=== PATIENT | male | born 1950 | race Caucasian/White ===

== ENCOUNTER 2021-08-22 10:46 | Observation (INO) | payer MEDICARE, MEDICAID, SELFPAY ==
[2021-08-22] VITALS (7 sets, daily range): BP systolic 141–185; BP diastolic 70–92; PULSE 71–83; RESP 16–20; TEMP 36.9–37.2; O2SAT 94–97; BMI 24.2
--- NOTE | ~2021-08-22 | CT_ITS ---
EXAMINATION: CT HEAD WITHOUT CONTRAST CLINICAL INFORMATION: Unwitnessed fall COMPARISON: None TECHNIQUE: Contiguous axial imaging was performed from the skull base to vertex without intravenous administration of contrast. This CT examination was performed using dose optimization techniques as appropriate, variously including the following: *Automated exposure control *Adjustment of mA and/or kV according to patient size (this includes techniques or standardized protocols for targeted exams where dose is matched to indication/reason for exam; i.e. extremities or head) *Use of iterative reconstruction technique DLP: 717 mGy-cm FINDINGS: There is no evidence of an extra-axial collection. There is no evidence of intra-axial or extra-axial hemorrhage. The ventricles and extra-axial CSF spaces are prominent suggestive of generalized atrophy. There is nonspecific periventricular white matter disease. There is an old left occipital parietal infarct and exvacuo dilatation of the posterior horn of the left lateral ventricle. There is a right posterior parietal infarct. There is a left basal ganglia lacunar infarct. There may be small bilateral thalamic lacunar infarcts. No mass or mass effect is seen. No skull fracture is seen. Visualized paranasal sinuses, mastoid air cells and middle ears are clear. CT/CT head/brain wo con IMPRESSION: No acute findings. Generalized atrophy and nonspecific periventricular white matter disease. Multiple bilateral infarcts.
--- NOTE | ~2021-08-22 | XR_ITS ---
EXAMINATION: XR BILATERAL HIPS WITH AP PELVIS CLINICAL INFORMATION: Bilateral hip pain after fall COMPARISON: None TECHNIQUE: AP view of the pelvis and 2 views of each hip were obtained. FINDINGS: There is a minimally displaced fracture of the right greater trochanter. No left hip fracture is seen. Bones of the pelvis are normal. Soft tissues are normal. XR/XR hip BI w [id number] IMPRESSION: Minimally displaced right greater trochanter fracture.
--- NOTE | ~2021-08-22 | CT_ITS ---
EXAMINATION: CT CERVICAL SPINE WITHOUT CONTRAST CLINICAL INFORMATION: Fall COMPARISON: None TECHNIQUE: Axial images through the cervical spine without contrast. Sagittal and coronal reconstructions on the technologist workstation were performed. This CT examination was performed using dose optimization techniques as appropriate, variously including the following: *Automated exposure control *Adjustment of mA and/or kV according to patient size (this includes techniques or standardized protocols for targeted exams where dose is matched to indication/reason for exam; i.e. extremities or head) *Use of iterative reconstruction technique DLP: 175 mGy-cm FINDINGS: There is reversal of lower cervical lordosis. Bone alignment is otherwise normal. No fracture or dislocation is seen. There is multilevel degenerative spondylosis and degenerative disc disease from C3-C4 to C6-C7. Prevertebral soft tissues are normal. There is evidence of atherosclerotic disease. There is a small cyst in the right upper lobe. Lung apices are otherwise unremarkable. CT/CT cervical spine wo con IMPRESSION: Degenerative changes. No fracture or dislocation seen. Fleischner guidelines were followed.
--- NOTE | 2021-08-22 11:03 | ECG_ITS ---
Test Reason : fall Blood Pressure : / mmHG Vent. Rate : 075 BPM Atrial Rate : 075 BPM P-R Int : 176 ms QRS Dur : 068 ms QT Int : 382 ms P-R-T Axes : 063 071 077 degrees QTc Int : 426 ms Normal sinus rhythm Normal ECG No previous ECGs available Referred By: Deanna Harris Electronically Signed By:Marino Alex
--- NOTE | 2021-08-22 11:16 | ED_ITS ---
HPI - Fall General Chief Complaint: General Medical Stated Complaint: UNWIT FALL,R HIP PAIN,FROM SNF PER EMS Time Seen by Provider: 08/22/21 11:03 Source: patient, EMS and old records reviewed Mode of arrival: EMS Limitations: altered mental status History of Present Illness HPI Narrative: 70 y/o male with history of vascular dementia, COPD, HTN, dysphagia, CVA, GI bleed, anemia, peptic ulcer disease who presents to the ER with right hip pain with reports of unwitnessed fall out of bed at his SNF at some point last night. Patient is a poor historian. He reports pain in his hip, worse with any movement. He was found with his hips and knees contracted laying in bed when EMS arrives. When attempted to move he would holler out in pain. He denies any headache or neck pain. MD complaint: fall Onset (ago): unknown Fall from: out of bed Fall witnessed: no Place fall occurred: skilled nursing/SNF Loss of consciousness: unsure Prolonged down time: unclear Symptoms prior to fall: none Location of injury: pelvis Severity: moderate Quality: aching Associated symptoms (after fall): denies Related Data Home Medications Medication Instructions Recorded Confirmed albuterol sulfate 90 mcg/actuation 2 puff INHALATION Q4-6H PRN 08/22/21 08/22/21 aerosol inhaler amlodipine 10 mg tablet 1 tab PO DAILY 08/22/21 08/22/21 aspirin 81 mg chewable tablet 81 mg PO DAILY 08/22/21 08/22/21 atorvastatin 80 mg tablet 1 tab PO DAILY 08/22/21 08/22/21 cholecalciferol (vitamin D3) 1,250 1,250 mcg PO QMONTH 08/22/21 08/22/21 mcg (50,000 unit) tablet clopidogrel 75 mg tablet 1 tab PO DAILY 08/22/21 08/22/21 gabapentin 300 mg capsule 300 mg PO DAILY 08/22/21 08/22/21 melatonin 3 mg tablet 3 mg PO BEDTIME 08/22/21 08/22/21 pantoprazole 40 mg tablet,delayed 1 tab PO DAILY 08/22/21 08/22/21 release polyethylene glycol 3350 17 gram 17 g PO DAILY 08/22/21 08/22/21 oral powder packet (Miralax) sennosides 8.6 mg tablet (senna) 17.2 mg PO DAILY 08/22/21 08/22/21 sertraline 50 mg tablet 1 tab PO DAILY 08/22/21 08/22/21 Allergies Allergy/AdvReac Type Severity Reaction Status Date / Time Unable to Assess Allergy Unverified 08/22/21 11:03 Review of Systems Review of Systems: Constitutional: No Fever, No Chills ENT/Mouth: No sore throat, No Rhinorrhea, No Swallowing Difficulty Cardiovascular: No Chest Pain, No SOB Respiratory: No Cough, No Sputum Gastrointestinal: No Nausea, No Vomiting, No Diarrhea, No abdominal Pain Genitourinary: No Dysuria, No Urinary Frequency, No Hematuria Musculoskeletal: + joint pain, No Myalgias Skin: No Skin Lesions, No rash Neuro: No Weakness, No Numbness, No Dizziness, No Headache Psych: No Anxiety/Panic, No Depression Heme/Lymph: No Bruising, No Lymphadenopathy PMFSH Social History Social History Advance Directives: Yes Advance Directives on File: No Physical Exam Vital Signs: Vital Signs: Last Vital Signs Temp 98.8 F 08/22/21 12:40 Pulse 71 08/22/21 14:33 Resp 16 08/22/21 14:33 BP 141/70 H 08/22/21 14:33 Pulse Ox 94 08/22/21 14:33 BMI result Body Mass Index 24.2 Appearance: Alert elderly male laying in the stretcher in cervical collar. Oriented X1. No acute distress. Eyes: Pupils equal, round and reactive to light. ENT: Pharynx normal. Neck: in cervical collar, no midline tenderness CVS: Normal heart rate and rhythm. Pulses normal. Respiratory: No respiratory distress. Breath sounds normal. Abdomen: Soft and nontender. +BS x4 Skin: Skin warm and dry. Normal skin color. Normal skin turgor. No rashes. Extremities: bilateral LE are contracted and held in flexion at the hips and knees, unable to extend, laying on his left side slightly. tender to touch right lateral hip. no skin changes. Neuro: Oriented X1, awake and alert, follows simple commands. confused Course Course Course Narrative: 70-year-old male with history of vascular dementia, strokes, COPD, dysphagia, history GI bleed and anemia who presents to the ER from [facility] for evaluation of right hip pain after an unwitnessed fall. [facility] [place] he ambulates with a walker. Difficult to assess due to flexion and positioning on exam as well as pain. XRs are pending. Will get CT head and neck and metabolic workup as well given limited history. Reevaluation(s) Reevaluation #1: CT head/neck without acute traumatic findings. EKG ok, trop negative. XR hips pending. Pain improved with Fentanyl. XR of the pelvis/hips showing a minimally displaced greater trochanteric right hip fx. Brianda from Ortho made aware - recommending admission for pain control, nonoperative management. Patient updated on plan of care. Consultations Consultation #1: Orthopedics - Brianda BRADLEY MDM - Fall Lab Data Result diagrams: 08/22/21 11:27 08/22/21 11: Labs: Lab Results 08/22/21 08/22/21 08/22/21 Range/Units 11:27 11:27 11:27 WBC 11.0 H (4.8-10.8) X10*3/uL RBC 3.97 L (4.60-5.80) X10*6/uL Hgb 13.0 L (14.0-18.0) g/dl Hct 37.5 L (42.0-52.0) % MCV 94.5 (80.0-98.0) fL MCH 32.7 (27.0-33.0) pg MCHC 34.7 (31.0-36.0) g/dl RDW 13.2 (11.0-16.0) % Plt Count 240 (160-400) X10*3/uL MPV 9.6 (9.4-12.4) fL Immature Gran % (Auto) 0.4 (0.0-0.4) % Neut % (Auto) 71.1 (45-73) % Lymph % (Auto) 19.6 L (20-40) % [place] % (Auto) 8.2 (2-11) % Eos % (Auto) 0.4 (0-4) % Baso % (Auto) 0.3 (0-2) % Lymph # (Auto) 2.2 (1.2-4.9) X10*3/uL [place] # (Auto) 0.9 (0.1-1.2) X10*3/uL Eos # (Auto) 0.0 (0.0-0.4) X10*3/uL Baso # (Auto) 0.0 (0.0-0.2) X10*3/uL Abs Immat Gran (auto) 0.04 H (0.00-0.03) X10*3/uL Absolute Neuts (auto) 7.8 (2.0-8.3) x10*3/uL Absolute Nucleated RBC 0.000 (0.0-0.012) X10*3/uL Nucleated RBC % (auto) 0.0 (0.0-0.2) /100WBC PT (9.9-13.0) SEC INR (0.9-1.1) APTT (24.1-38.0) SEC Sodium 136 (135-145) mmol/L Potassium 4.2 (3.3-5.1) mmol/L Chloride 106 (96-108) mmol/L Carbon Dioxide 21 L (22-29) mmol/L Anion Gap 13 (12-20) BUN 21 H (9-16) mg/dL Creatinine 0.88 (0.5-1.4) mg/dL Estim Creat Clear Calc 63.7 Estimated GFR > 60 Random Glucose 112 (60-115) mg/dL Lactic Acid 1.2 (0.5-2.0) mmol/L Calcium 9.0 (8.4-10.2) mg/dL Magnesium 2.0 (1.6-2.6) mg/dL Total Bilirubin 0.8 (0.0-1.0) mg/dL Direct Bilirubin 0.3 (0.0-0.5) mg/dL AST 24 (5-37) U/L ALT 47 H (0-40) U/L Alkaline Phosphatase 139 H (39-117) U/L Troponin I High Sens (<3.5-35.0) ng/L Total Protein 6.9 (6.5-8.0) g/dL Albumin 4.0 (3.5-5.0) g/dL COVID-19 (PILAR) (Negative) COVID-19 Clin Com Influenza Type A (NADJA) (Negative) Influenza Type B (NADJA) (Negative) Influenza A & B Note 08/22/21 08/22/21 08/22/21 Range/Units 11:27 11:27 11:28 WBC (4.8-10.8) X10*3/uL RBC (4.60-5.80) X10*6/uL Hgb (14.0-18.0) g/dl Hct (42.0-52.0) % MCV (80.0-98.0) fL MCH (27.0-33.0) pg MCHC (31.0-36.0) g/dl RDW (11.0-16.0) % Plt Count (160-400) X10*3/uL MPV (9.4-12.4) fL Immature Gran % (Auto) (0.0-0.4) % Neut % (Auto) (45-73) % Lymph % (Auto) (20-40) % [place] % (Auto) (2-11) % Eos % (Auto) (0-4) % Baso % (Auto) (0-2) % Lymph # (Auto) (1.2-4.9) X10*3/uL [place] # (Auto) (0.1-1.2) X10*3/uL Eos # (Auto) (0.0-0.4) X10*3/uL Baso # (Auto) (0.0-0.2) X10*3/uL Abs Immat Gran (auto) (0.00-0.03) X10*3/uL Absolute Neuts (auto) (2.0-8.3) x10*3/uL Absolute Nucleated RBC (0.0-0.012) X10*3/uL Nucleated RBC % (auto) (0.0-0.2) /100WBC PT (9.9-13.0) SEC INR (0.9-1.1) APTT (24.1-38.0) SEC Sodium (135-145) mmol/L Potassium (3.3-5.1) mmol/L Chloride (96-108) mmol/L Carbon Dioxide (22-29) mmol/L Anion Gap (12-20) BUN (9-16) mg/dL Creatinine (0.5-1.4) mg/dL Estim Creat Clear Calc Estimated GFR Random Glucose (60-115) mg/dL Lactic Acid (0.5-2.0) mmol/L Calcium (8.4-10.2) mg/dL Magnesium (1.6-2.6) mg/dL Total Bilirubin (0.0-1.0) mg/dL Direct Bilirubin (0.0-0.5) mg/dL AST (5-37) U/L ALT (0-40) U/L Alkaline Phosphatase (39-117) U/L Troponin I High Sens < 3.5 (<3.5-35.0) ng/L Total Protein (6.5-8.0) g/dL Albumin (3.5-5.0) g/dL COVID-19 (PILAR) Negative (Negative) COVID-19 Clin Com See Note Influenza Type A (NADJA) Negative (Negative) Influenza Type B (NADJA) Negative (Negative) Influenza A & B Note See Note 08/22/21 Range/Units 11:56 WBC (4.8-10.8) X10*3/uL RBC (4.60-5.80) X10*6/uL Hgb (14.0-18.0) g/dl Hct (42.0-52.0) % MCV (80.0-98.0) fL MCH (27.0-33.0) pg MCHC (31.0-36.0) g/dl RDW (11.0-16.0) % Plt Count (160-400) X10*3/uL MPV (9.4-12.4) fL Immature Gran % (Auto) (0.0-0.4) % Neut % (Auto) (45-73) % Lymph % (Auto) (20-40) % [place] % (Auto) (2-11) % Eos % (Auto) (0-4) % Baso % (Auto) (0-2) % Lymph # (Auto) (1.2-4.9) X10*3/uL [place] # (Auto) (0.1-1.2) X10*3/uL Eos # (Auto) (0.0-0.4) X10*3/uL Baso # (Auto) (0.0-0.2) X10*3/uL Abs Immat Gran (auto) (0.00-0.03) X10*3/uL Absolute Neuts (auto) (2.0-8.3) x10*3/uL Absolute Nucleated RBC (0.0-0.012) X10*3/uL Nucleated RBC % (auto) (0.0-0.2) /100WBC PT 12.5 (9.9-13.0) SEC INR 1.1 (0.9-1.1) APTT 32.4 (24.1-38.0) SEC Sodium (135-145) mmol/L Potassium (3.3-5.1) mmol/L Chloride (96-108) mmol/L Carbon Dioxide (22-29) mmol/L Anion Gap (12-20) BUN (9-16) mg/dL Creatinine (0.5-1.4) mg/dL Estim Creat Clear Calc Estimated GFR Random Glucose (60-115) mg/dL Lactic Acid (0.5-2.0) mmol/L Calcium (8.4-10.2) mg/dL Magnesium (1.6-2.6) mg/dL Total Bilirubin (0.0-1.0) mg/dL Direct Bilirubin (0.0-0.5) mg/dL AST (5-37) U/L ALT (0-40) U/L Alkaline Phosphatase (39-117) U/L Troponin I High Sens (<3.5-35.0) ng/L Total Protein (6.5-8.0) g/dL Albumin (3.5-5.0) g/dL COVID-19 (PILAR) (Negative) COVID-19 Clin Com Influenza Type A (NADJA) (Negative) Influenza Type B (NADJA) (Negative) Influenza A & B Note Discharge Plan Discharge Clinical Impression: Displaced fracture of greater trochanter of right femur Patient Disposition: Admitted As Inpatient
[2021-08-22 11:34] LABS: MANUAL DIFF FLAG NO
[2021-08-22] MEDS: fentaNYL citrate/PF 100 MCG/2 ML VIAL 50 MCG IVPUSH (11:37)
[2021-08-22 11:40] LABS: Basophils Percent Auto 0.3 % (0-2); Eosinophils Percent Auto 0.4 % (0-4); Hematocrit 37.5 % (42.0-52.0); Imm Gran Abs Auto 0.04 X10*3/uL (0.00-0.03); Imm Gran Pct Auto 0.4 % (0.0-0.4); Lymphocytes Absolute Auto 2.2 X10*3/uL (1.2-4.9); Lymphocytes Percent Auto 19.6 % (20-40); Mean Corpuscular HGB Conc 34.7 g/dl (31.0-36.0); Mean Corpuscular Hemoglobin 32.7 pg (27.0-33.0); Mean Corpuscular Volume 94.5 fL (80.0-98.0); Mean Platelet Volume 9.6 fL (9.4-12.4); Monocytes Absolute Auto 0.9 X10*3/uL (0.1-1.2); Monocytes Percent Auto 8.2 % (2-11); Neutrophils Absolute Auto 7.8 x10*3/uL (2.0-8.3); Neutrophils Percent Auto 71.1 % (45-73); Platelet Count 240 X10*3/uL (160-400); Red Blood Count 3.97 X10*6/uL (4.60-5.80); Red Cell Distribution Width 13.2 % (11.0-16.0)
[2021-08-22 11:47] LABS: Lactic Acid 1.2 mmol/L (0.5-2.0)
[2021-08-22 11:50] LABS: IDNOW Serial# 16C4AD1C; Influenza A Negative (Negative); Influenza B2 Negative (Negative)
[2021-08-22 11:51] LABS: COVID-19 Test Negative (Negative)
--- NOTE | 2021-08-22 11:52 | PHA.MEDREC ---
Pharmacy Consult ? Medication Reconciliation Pharmacy has completed the medication reconciliation. Patient came from [facility] with medication list. Lindsay De Paz, ChitraD
[2021-08-22 11:56] LABS: Alanine Aminotransferase 47 U/L (0-40); Alkaline Phosphatase 139 U/L (39-117); Anion Gap 13 (12-20); Aspartate Amino Transferase 24 U/L (5-37); Bilirubin Direct 0.3 mg/dL (0.0-0.5); Bilirubin Total 0.8 mg/dL (0.0-1.0); Blood Urea Nitrogen 21 mg/dL (9-16); Carbon Dioxide 21 mmol/L (22-29); Chloride 106 mmol/L (96-108); Creatinine Clr Calc Pharmacy 63.7; Estimated Glomerular Filt Rate > 60; Glucose Random 112 mg/dL (60-115); Potassium 4.2 mmol/L (3.3-5.1); Sodium 136 mmol/L (135-145); Total Protein 6.9 g/dL (6.5-8.0)
[2021-08-22 11:57] LABS: Troponin-I High Sensitivity < 3.5 ng/L (<3.5-35.0)
[2021-08-22 12:23] LABS: INTERNATIONAL NORM RATIO 1.1 (0.9-1.1); Prothrombin Time 12.5 SEC (9.9-13.0)
[2021-08-22 12:25] LABS: Partial Thromboplastin Time 32.4 SEC (24.1-38.0)
--- NOTE | 2021-08-22 14:08 | PC.NURSE ---
ct report back and is [facility]. [facility] has reviewed and cleared pt from c-collar pt resting comfortably.
--- NOTE | 2021-08-22 17:27 | PM.IMHP ---
History of Present Illness Date of Service: 08/22/21 Chief Complaint: fall, right hip pain 70m with past medical history of vascular dementia who lives at a long-term care facility presented after mechanical fall with right hip pain. Fall was unwitnessed. Patient himself can not give history due to expressive aphasia. He was found with hips and knees contracted lying in bed. X-ray showed minimally displaced greater trochanteric fracture of the right hip. Review of Systems Review of Systems: Yes Unobtainable due to mental condition [facility] Medical History COPD (chronic obstructive pulmonary disease) HLD (hyperlipidemia) HTN (hypertension) PUD (peptic ulcer disease) Vascular dementia Pertinent family history: unable to obtain Social History Alcohol intake: former Patient Tobacco Use Status: Former Tobacco user Advance Directives: Yes Advance Directives on File: No Meds Allergies Allergy/AdvReac Type Severity Reaction Status Date / Time Unable to Assess Allergy Unverified 08/22/21 11:03 Active Medications: Current Medications Albuterol Sulfate (Albuterol Sulfate 90 Mcg 8 Gm Inhaler) 2 puff INHALE Q4H PRN PRN Reason: Wheezing Amlodipine Besylate (Amlodipine Besylate 10 Mg Tablet) 10 mg PO DAILY [facility]; Protocol Aspirin (Aspirin 81 Mg Tab.Chew) 81 mg PO DAILY [facility] Atorvastatin Calcium (Atorvastatin Calcium 80 Mg Tablet) 80 mg PO DAILY [facility] Clopidogrel Bisulfate (Clopidogrel Bisulfate 75 Mg Tablet) 75 mg PO DAILY [facility] Gabapentin (Gabapentin 300 Mg Capsule) 300 mg PO DAILY [facility] Melatonin (Melatonin 3 Mg Tablet) 3 mg PO BEDTIME [facility] Morphine Sulfate (Morphine Sulfate 2 Mg/Ml Cartridge) 2 mg IVPUSH Q4H PRN; Protocol PRN Reason: moderate pain Non-Formulary Medication (Cholecalciferol (Vitamin D3)) 1,250 mcg PO QMONTH [facility] Non-Formulary Medication (Pantoprazole) 1 tab PO DAILY [facility] Pharmacy Consult (Consult Rx Perform Med Rec) 1 each MISCELLANE ONCE PRN PRN Reason: Consult order Polyethylene Glycol (Polyethylene Glycol 3350 17 Gm Powd.Pack) 17 gm PO DAILY [facility] Senna (Sennosides 8.6 Mg Tablet) 17.2 mg PO DAILY [facility] Sertraline HCl (Sertraline Hcl 50 Mg Tablet) 50 mg PO DAILY [facility] Home Medications Medication Instructions Recorded Confirmed Last Taken Type albuterol sulfate 90 mcg/actuation 2 puff INHALATION Q4-6H PRN 08/22/21 08/22/21 Unknown History aerosol inhaler amlodipine 10 mg tablet 1 tab PO DAILY 08/22/21 08/22/21 Unknown History aspirin 81 mg chewable tablet 81 mg PO DAILY 08/22/21 08/22/21 Unknown History atorvastatin 80 mg tablet 1 tab PO DAILY 08/22/21 08/22/21 Unknown History cholecalciferol (vitamin D3) 1,250 1,250 mcg PO QMONTH 08/22/21 08/22/21 08/01/21 History mcg (50,000 unit) tablet clopidogrel 75 mg tablet 1 tab PO DAILY 08/22/21 08/22/21 Unknown History gabapentin 300 mg capsule 300 mg PO DAILY 08/22/21 08/22/21 Unknown History melatonin 3 mg tablet 3 mg PO BEDTIME 08/22/21 08/22/21 Unknown History pantoprazole 40 mg tablet,delayed 1 tab PO DAILY 08/22/21 08/22/21 Unknown History release polyethylene glycol 3350 17 gram 17 g PO DAILY 08/22/21 08/22/21 Unknown History oral powder packet (Miralax) sennosides 8.6 mg tablet (senna) 17.2 mg PO DAILY 08/22/21 08/22/21 Unknown History sertraline 50 mg tablet 1 tab PO DAILY 08/22/21 08/22/21 Unknown History Physical Exam Vital Signs and Narrative: Vital Signs: Last Vital Signs Temp 98.8 F 08/22/21 12:40 Pulse 71 08/22/21 14:33 Resp 16 08/22/21 14:33 BP 141/70 H 08/22/21 14:33 Pulse Ox 94 08/22/21 14:33 BMI result Body Mass Index 24.2 General: in pain, contracted, HEENT: atraumatic Neck: normal to visual inspection CVS: S1, S2, RRR Resp: CTA bilateral Chest: non tender GI: soft, non tender, non distended : no CVA tenderness Skin: no rashes Extremities: no edema Neuro: contracted, expressive aphasia Psych: imapired insight Results Labs CBC and Chem 7: 08/22/21 11:27 08/22/21 11:27 Labs: Laboratory Results - last 24 hr 08/22/21 08/22/21 08/22/21 11:27 11:27 11:27 MCV 94.5 MCH 32.7 MCHC 34.7 RDW 13.2 Plt Count 240 MPV 9.6 Immature Gran % (Auto) 0.4 Neut % (Auto) 71.1 Lymph % (Auto) 19.6 L [place] % (Auto) 8.2 Eos % (Auto) 0.4 Baso % (Auto) 0.3 Lymph # (Auto) 2.2 [place] # (Auto) 0.9 Eos # (Auto) 0.0 Baso # (Auto) 0.0 Abs Immat Gran (auto) 0.04 H Absolute Neuts (auto) 7.8 Absolute Nucleated RBC 0.000 Nucleated RBC % (auto) 0.0 PT INR APTT Anion Gap 13 Estim Creat Clear Calc 63.7 Estimated GFR > 60 Random Glucose 112 Lactic Acid 1.2 Calcium 9.0 Magnesium 2.0 Total Bilirubin 0.8 Direct Bilirubin 0.3 AST 24 ALT 47 H Alkaline Phosphatase 139 H Troponin I High Sens Total Protein 6.9 Albumin 4.0 COVID-19 (PILAR) COVID-19 Clin Com Influenza Type A (NADJA) Influenza Type B (NADJA) Influenza A & B Note 08/22/21 08/22/21 08/22/21 11:27 11:27 11:28 MCV MCH MCHC RDW Plt Count MPV Immature Gran % (Auto) Neut % (Auto) Lymph % (Auto) [place] % (Auto) Eos % (Auto) Baso % (Auto) Lymph # (Auto) [place] # (Auto) Eos # (Auto) Baso # (Auto) Abs Immat Gran (auto) Absolute Neuts (auto) Absolute Nucleated RBC Nucleated RBC % (auto) PT INR APTT Anion Gap Estim Creat Clear Calc Estimated GFR Random Glucose Lactic Acid Calcium Magnesium Total Bilirubin Direct Bilirubin AST ALT Alkaline Phosphatase Troponin I High Sens < 3.5 Total Protein Albumin COVID-19 (PILAR) Negative COVID-19 Clin Com See Note Influenza Type A (NADJA) Negative Influenza Type B (NADJA) Negative Influenza A & B Note See Note 08/22/21 11:56 MCV MCH MCHC RDW Plt Count MPV Immature Gran % (Auto) Neut % (Auto) Lymph % (Auto) [place] % (Auto) Eos % (Auto) Baso % (Auto) Lymph # (Auto) [place] # (Auto) Eos # (Auto) Baso # (Auto) Abs Immat Gran (auto) Absolute Neuts (auto) Absolute Nucleated RBC Nucleated RBC % (auto) PT 12.5 INR 1.1 APTT 32.4 Anion Gap Estim Creat Clear Calc Estimated GFR Random Glucose Lactic Acid Calcium Magnesium Total Bilirubin Direct Bilirubin AST ALT Alkaline Phosphatase Troponin I High Sens Total Protein Albumin COVID-19 (PILAR) COVID-19 Clin Com Influenza Type A (NADJA) Influenza Type B (NADJA) Influenza A & B Note Imaging Radiologist's Impressions: Impressions Cervical Spine CT 08/22/21 12:41 IMPRESSION: Degenerative changes. No fracture or dislocation seen. Fleischner guidelines were followed. Head CT 08/22/21 12:41 IMPRESSION: No acute findings. Generalized atrophy and nonspecific periventricular white matter disease. Multiple bilateral infarcts. Hip/Pelvis X-Ray 08/22/21 14:33 IMPRESSION: Minimally displaced right greater trochanter fracture. Assessment and Plan (1) COPD (chronic obstructive pulmonary disease): Status: Acute Plan 70M presented with fall, right hip fracture Mechanical fall complicated by minimally displaced greater trochanteric right hip fracture Per Orthopedics non operable Recommended nonweightbearing, pain control Vascular dementia due to history of CVA complicated by dysphagia Dual antiplatelet, statin, pureed solids with thin liquids Hypertension Amlodipine Hyperlipidemia Statin COPD Albuterol as needed Peptic ulcer disease PPI DVT prophylaxis with Lovenox Full code Quality Stroke Does the patient have a stroke diagnosis?: No VTE Prior VTE?: No VTE Risk Level:: Medical - moderate - high VTE Device Contraindication: Treatment Not Indicated VTE Drug Contraindication: N/A - Med Ordered
[2021-08-22] MEDS: Enoxaparin Sodium 40 MG/0.4 ML SYRINGE SUBCUT (18:37)
[2021-08-22] MEDS: Morphine Sulfate 2 MG/ML CARTRIDGE IVPUSH (19:03)
[2021-08-22] MEDS: amLODIPine Besylate 5 MG TABLET PO (23:13)
[2021-08-22] MEDS: Melatonin 3 MG TABLET PO (23:14)
[2021-08-23] VITALS: BP 188/85; PULSE 81; RESP 18; TEMP 36.6; O2SAT 97
[2021-08-23] MEDS: 0.9 % Sodium Chloride Flush 3 ML SYRINGE IVFLUSH ×2 (00:52→11:23)
[2021-08-23 03:59] VITALS: BP 173/82; PULSE 86; RESP 18; TEMP 36.6; O2SAT 94
[2021-08-23 06:06] LABS: Hemoglobin 12.4 g/dl (14.0-18.0); Mean Corpuscular HGB Conc 34.4 g/dl (31.0-36.0); Mean Corpuscular Hemoglobin 32.4 pg (27.0-33.0); Mean Platelet Volume 10.2 fL (9.4-12.4); Platelet Count 219 X10*3/uL (160-400); Red Blood Count 3.83 X10*6/uL (4.60-5.80); Red Cell Distribution Width 13.3 % (11.0-16.0); White Blood Count 11.3 X10*3/uL (4.8-10.8)
[2021-08-23 06:21] LABS: Anion Gap 13 (12-20); Blood Urea Nitrogen 20 mg/dL (9-16); Calcium 9.2 mg/dL (8.4-10.2); Carbon Dioxide 23 mmol/L (22-29); Chloride 107 mmol/L (96-108); Creatinine Clr Calc Pharmacy 68.4; Estimated Glomerular Filt Rate > 60; Glucose Fasting 116 mg/dL (60-99); Potassium 3.9 mmol/L (3.3-5.1); Sodium 139 mmol/L (135-145)
[2021-08-23 07:44] VITALS: BP 160/69; PULSE 76; RESP 18; TEMP 36.9; O2SAT 97
--- NOTE | 2021-08-23 11:11 | MHC.CM.PN ---
Addendum entered by Rahel Vásquez 08/23/21 11:21: 2 PM TRANSFER REQUEST SENT TO [facility] Original Note: PATIENT IS LTC AT [facility] PLAN IS RETURN TODAY HE IS 6 WEEKS NWB AND FACILITY AWARE HCP/DAUGHTER SALVADOR CALLED AND IS NOW AWARE OF PLAN. SHE WILL CONTACT PATIENT'S [employer] D[employer] TENDER AT FACILITY. EDITH DISCUSSED AND 08/23 COPY IN CHART RN AND UNIT AWARE OF PLAN.
[2021-08-23 11:36] VITALS: BP 133/61; PULSE 94; RESP 18; TEMP 36.7; O2SAT 96
--- NOTE | 2021-08-23 12:43 | PM.DS ---
DS: Providers Provider Date of Service: 08/23/21 Date of admission: 08/22/21 17:26 Primary care physician: Catherine Doyle MD DS: Diagnosis Discharge Diagnosis (1) COPD (chronic obstructive pulmonary disease): Status: Acute DS: Summary Hospital Course Hospital Course: from initial hpi: Chief Complaint: fall, right hip pain 70m with past medical history of vascular dementia who lives at a long-term care facility presented? after mechanical fall with right hip pain.? Fall was unwitnessed.? Patient himself can not give history due to expressive aphasia.? He was found with hips and knees contracted lying in bed.? X-ray showed minimally displaced greater trochanteric fracture of the right hip. hospital course: Patient was admitted after mechanical fall complicated by minimally displaced greater trochanteric fracture of the right hip with pain. Case was discussed with Orthopedics who recommended nonsurgical approach and nonweightbearing status, patient's pain was controlled and will follow up outpatient with Orthopedics. For his vascular dementia due to history of CVA complicated by dysphagia he was continued on dual antiplatelet and statin as well as a diet of pureed solids with thin liquids. For hypertension he will continue amlodipine. For hyperlipidemia he will continue statin. For COPD will continue albuterol as needed. For history of peptic ulcer disease he will continue PPI. Time Spent with Patient Time attestation: Total time spent providing and/or coordinating discharge services: Discharge coordination time: Greater than 30 minutes Quality: Safe Use of Opioids Does Pt have an Active Cancer Diagnosis on the Problem List?: No Quality: Stroke Does the patient have a stroke diagnosis?: No Physical Exam Vital Signs: Vital Signs: Last Vital Signs Temp 98.1 F 08/23/21 11:36 Pulse 94 08/23/21 11:36 Resp 18 08/23/21 11:36 BP 133/61 08/23/21 11:36 Pulse Ox 96 08/23/21 11:36 BMI result Body Mass Index 24.2 General: AO X 1, minimally verbal Resp: CTA bilateral, no accessory muscles used CVS: S1,S2,RRR GI: soft, non tender, non distended Neuro: contracted Psych: imapired insight DS: Data Data Completed and Pending Labs on day of discharge: Laboratory Results - last 24 hr 08/23/21 08/23/21 05:15 05:15 WBC 11.3 H RBC 3.83 L Hgb 12.4 L Hct 36.0 L MCV 94.0 MCH 32.4 MCHC 34.4 RDW 13.3 Plt Count 219 MPV 10.2 Absolute Nucleated RBC 0.000 Nucleated RBC % (auto) 0.0 Sodium 139 Potassium 3.9 Chloride 107 Carbon Dioxide 23 Anion Gap 13 BUN 20 H Creatinine 0.82 Estim Creat Clear Calc 68.4 Estimated GFR > 60 Fasting Glucose 116 H Calcium 9.2 Discharge Plan Discharge Patient Disposition: Xfer SNF Discharge Diagnosis: hip fracture Referrals: [facility] [Outside] - 1 Week Catherine Doyle MD [Primary Care Provider] - 1 Week Varghese Patterson MD [Physician] - 1 Month Discharge Medications: New oxycodone 5 mg Tablet 5 mg PO Q6H PRN (Reason: moderate pain) Qty: 15 0RF enoxaparin 40 mg/0.4 mL Syringe 40 mg subcut Q24H Qty: 0 0RF Continued atorvastatin 80 mg tablet 1 tab PO DAILY 0RF sennosides [senna] 8.6 mg Tablet 17.2 mg PO DAILY 0RF polyethylene glycol 3350 [Miralax] 17 gram Powder In Packet 17 g PO DAILY 0RF melatonin 3 mg Tablet 3 mg PO BEDTIME 0RF clopidogrel 75 mg tablet 1 tab PO DAILY 0RF amlodipine 10 mg tablet 1 tab PO DAILY 0RF pantoprazole 40 mg tablet,delayed release (DR/EC) 1 tab PO DAILY 0RF gabapentin 300 mg Capsule 300 mg PO DAILY 0RF aspirin 81 mg Tablet,Chewable 81 mg PO DAILY 0RF albuterol sulfate 90 mcg/actuation Hfa Aerosol Inhaler 2 puff INHALATION Q4-6H PRN (Reason: Wheezing) 0RF sertraline 50 mg tablet 1 tab PO DAILY 0RF cholecalciferol (vitamin D3) 1,250 mcg (50,000 unit) Tablet 1,250 mcg PO QMONTH 0RF Discharge Orders: Discharge Order (Routine); Ordered 08/23/21 Ordered By: Sarabjit Rooney Diet: advance to usual diet Activity on Discharge: As tolerated Stand Alone Forms: Patient Portal Discharge page Care Plan Goals: pain control Health Concerns: hip fracture Plan of Treatment: non weight bearing, 6 weeks, dvt prophylaxis, follow up with ortho Assessment: see above
== END 2021-08-23 14:15 | disposition skilled nursing facility (03) ==
LOC: HO.ED 16:31 → HO.S3 08-23 11:20 → HO.EDOVER 08-26 07:53
PROVIDERS: Physician Assistant; Admitting Provider Internal Medicine; Emergency Provider Emergency Medicine; PCP Internal Medicine; Visit Provider Internal Medicine
DX: J44.9 Chronic obstructive pulmonary disease, unspecified (principal); I44.0 Atrioventricular block, first degree; I25.10 Atherosclerotic heart disease of native coronary artery without angina pectoris; I10 Essential (primary) hypertension; J98.4 Other disorders of lung; E78.5 Hyperlipidemia, unspecified; F80.1 Expressive language disorder; F01.50 Vascular dementia, unspecified severity, without behavioral disturbance, psychotic disturbance, mood disturbance, and anxiety; S72.111A Displaced fracture of greater trochanter of right femur, initial encounter for closed fracture; W19.XXXA Unspecified fall, initial encounter; Y93.9 Activity, unspecified; Y92.129 Unspecified place in nursing home as the place of occurrence of the external cause; Y99.8 Other external cause status; M24.552 Contracture, left hip; M24.551 Contracture, right hip; M24.562 Contracture, left knee; M24.561 Contracture, right knee; M47.812 Spondylosis without myelopathy or radiculopathy, cervical region; M50.323 Other cervical disc degeneration at C6-C7 level; Z20.822 Contact with and (suspected) exposure to COVID-19; Z86.73 Personal history of transient ischemic attack (TIA), and cerebral infarction without residual deficits; Z79.82 Long term (current) use of aspirin; Z79.899 Other long term (current) drug therapy
CPT/HCPCS: 36415; 70450; 72125; 73521; 80048; 80076; 83605; 83735; 84484; 85025; 85027; 85610; 85730; 87040; 87502; 87635; 93005; 96374; 96375; 99218; 99284; 99285; J1650; J2270; J3010

== ENCOUNTER 2021-10-06 07:10 | Outpatient (REF) | payer OTHER, MEDICARE, MEDICAID, SELFPAY ==
--- NOTE | ~2021-10-06 | XR_ITS ---
EXAMINATION: XR pelvis 1-2V, XR hip RT min 2V CLINICAL INFORMATION: Right hip pain COMPARISON: Pelvis and bilateral hip radiographs 08/22/2021 TECHNIQUE: AP pelvis, AP and crosstable lateral views right hip FINDINGS: Progressive healing of the minimally displaced right greater trochanteric fracture with at least partial osseous bridging and mild residual trabecular sclerosis. No acute fracture or dislocation. Bilateral hip joint spaces are maintained with mild acetabular rim marginal osteophyte formation bilaterally. Pubic symphysis and SI joints are congruent and intact. Disc degenerative changes in the visualized lower lumbar spine and atherosclerotic vascular calcifications are noted. XR/XR hip RT min 2V IMPRESSION: 1. Progressive healing of the right greater trochanteric fracture. No acute fracture or dislocation. 2. Mild bilateral hip joint osteoarthritis with preserved joint spaces.
--- NOTE | ~2021-10-06 | XR_ITS ---
EXAMINATION: XR pelvis 1-2V, XR hip RT min 2V CLINICAL INFORMATION: Right hip pain COMPARISON: Pelvis and bilateral hip radiographs 08/22/2021 TECHNIQUE: AP pelvis, AP and crosstable lateral views right hip FINDINGS: Progressive healing of the minimally displaced right greater trochanteric fracture with at least partial osseous bridging and mild residual trabecular sclerosis. No acute fracture or dislocation. Bilateral hip joint spaces are maintained with mild acetabular rim marginal osteophyte formation bilaterally. Pubic symphysis and SI joints are congruent and intact. Disc degenerative changes in the visualized lower lumbar spine and atherosclerotic vascular calcifications are noted. XR/XR pelvis 1-2V IMPRESSION: 1. Progressive healing of the right greater trochanteric fracture. No acute fracture or dislocation. 2. Mild bilateral hip joint osteoarthritis with preserved joint spaces.
== END 2021-10-06 07:11 | disposition home or self-care (01) ==
LOC: HO.HOSX 07:10
PROVIDERS: Visit Provider Physician Assistant
DX: S72.111A Displaced fracture of greater trochanter of right femur, initial encounter for closed fracture (principal); M25.551 Pain in right hip
CPT/HCPCS: 72170; 73502; 99202

== ENCOUNTER 2023-12-25 14:25 | Emergency (ER) | payer MEDICARE, MEDICAID, SELFPAY ==
[2023-12-25] VITALS (7 sets, daily range): BP systolic 77–102; BP diastolic 46–52; PULSE 62–72; RESP 12–14; TEMP 36.2–36.9; O2SAT 94–96; BMI 19.9
--- NOTE | ~2023-12-25 | XR_ITS ---
EXAMINATION: XR CHEST CLINICAL INFORMATION: Shortness of breath COMPARISON: None available. TECHNIQUE: Frontal view of the chest was obtained in the lordotic position. FINDINGS: Lungs are hypoinflated. Some left basilar atelectasis is seen. Heart size normal. No evidence of CHF. No pneumothorax. XR/XR chest 1V IMPRESSION: Hypoinflated lungs with left basilar atelectasis. Electronically signed by: Dennis Vazquez MD 12/25/2023 05:49 PM EDT
--- NOTE | ~2023-12-25 | US_ITS ---
EXAMINATION: US ABDOMEN LIMITED CLINICAL INFORMATION: Right upper quadrant pain. COMPARISON: None available. TECHNIQUE: Real-time imaging of the gallbladder and common bile duct only. FINDINGS: GALLBLADDER: The gallbladder could only be examined in the supine position as the patient was unable to turn into the decubitus position The gallbladder is physiologically distended without evidence of stones, sludge, polyps, wall thickening or pericholecystic fluid in the supine position. COMMON BILE DUCT: Normal in caliber measuring 0.5 cm in diameter. US/US abdomen limited IMPRESSION: Normal-appearing gallbladder and common bile duct. Electronically signed by: Dennis Vazquez MD 12/25/2023 07:04 PM EDT
--- NOTE | 2023-12-25 14:57 | PC.NURSE ---
coming from snf for failure to thrive, patient remains hypotensive at this time - given 500mL normal saline in route via EMS. remains on room air with even and unlabored respiration. recent chest xray/flu/covid/rsv swab d/t cough - all found to be negative. patient primarily nonverbal, resting quietly in room with eyes closed no obvious signs/symptoms of distress noted.
--- NOTE | 2023-12-25 16:11 | ED_ITS ---
HPI - Weakness General Chief complaint: Failure to Thrive Stated complaint: NOT DRINKING OR EATING Time Seen by Provider: 12/25/23 16:08 Source: EMS Limitations: altered mental status History of Present Illness ED Provider: Carline Henderson PA-C HPI Narrative: 73-year-old male with a history of advanced vascular dementia, who is a DNR, DNI, with a MOLST in place for no interventions including transportation to the hospital, presents with failure to thrive. The patient has not been eating or drinking for several days. The facility called the family member who is the healthcare proxy to ask permission for treatment, they said he could come to the emergency department for assessment. Related Data Home Medications ?Medication ?Instructions ?Recorded ?Confirmed albuterol sulfate 90 mcg/actuation 2 puff inhalation Q4-6H PRN 08/22/21 08/22/21 aerosol inhaler Wheezing amlodipine 10 mg tablet 1 tab PO DAILY 08/22/21 08/22/21 aspirin 81 mg chewable tablet 81 mg PO DAILY 08/22/21 08/22/21 atorvastatin 80 mg tablet 1 tab PO DAILY 08/22/21 08/22/21 cholecalciferol (vitamin D3) 1,250 1,250 mcg PO QMONTH 08/22/21 08/22/21 mcg (50,000 unit) tablet clopidogrel 75 mg tablet 1 tab PO DAILY 08/22/21 08/22/21 gabapentin 300 mg capsule 300 mg PO DAILY 08/22/21 08/22/21 melatonin 3 mg tablet 3 mg PO BEDTIME 08/22/21 08/22/21 pantoprazole 40 mg tablet,delayed 1 tab PO DAILY 08/22/21 08/22/21 release polyethylene glycol 3350 17 gram 17 g PO DAILY 08/22/21 08/22/21 oral powder packet (Miralax) sennosides 8.6 mg tablet (senna) 17.2 mg PO DAILY 08/22/21 08/22/21 sertraline 50 mg tablet 1 tab PO DAILY 08/22/21 08/22/21 Previous Rx's ?Medication ?Instructions ?Recorded enoxaparin 40 mg/0.4 mL 40 mg (0.4 mL) subcut Q24H #0 mL 08/23/21 subcutaneous syringe oxycodone 5 mg tablet 5 mg PO Q6H PRN moderate pain #15 08/23/21 tabs Allergies Allergy/AdvReac Type Severity Reaction Status Date / Time No Known Allergies Allergy Verified 12/25/23 14:42 Review of Systems 2 Review of Systems: Unable to obtain due to advanced dementia Yes all other systems are reviewed and are negative [facility] Past Medical History Attestation statement: The following information was validated with the patient. Medical History COPD (chronic obstructive pulmonary disease) HLD (hyperlipidemia) HTN (hypertension) PUD (peptic ulcer disease) Vascular dementia Social History Social History Household Members: None Housing: Group Home Unable to assess alcohol history related to: Refusing to respond Alcohol intake: former Patient Tobacco Use Status: Former Tobacco user Advance Directives: Yes Advance Directives on File: Yes Advance Directives Date on File: 12/25/23 Do you have a plan to hurt others: No Plan service: No Current occupational status: disabled Physical Exam 2 Vital Signs: Vital Signs: Last Vital Signs Temp 97.9 F 12/26/23 00:33 Pulse 66 12/26/23 00:33 Resp 16 12/26/23 00:33 BP 92/51 L 12/26/23 00:33 Pulse Ox 96 12/26/23 00:33 O2 Del Method Room Air 12/26/23 00:33 BMI result Body Mass Index 19.9 Const: Other: Sleeping, woken with verbal stimuli, is cachectic HEENT: Other: Dry oral mucosa Resp: Effort & Inspection: normal respiratory effort Cardio: Other: Normal peripheral perfusion Skin: Other: Warm dry no rash Neuro: General: no focal motor deficits and CN's II-XI intact bilaterally Psych: Other: Flat affect, will not speak Course Reevaluation(s) Reevaluation #1: Spoke with Marie in regard to the labs, I believe that the patient is clinically dehydrated has an KENNEDY, also had slight elevation in LFTs. Marie states that he was a drinker in the past. I relate that we would be obtaining an ultrasound of the right upper quadrant, she is in agreement. I also related that we would repeat labs once fluids are complete to see if there is a change in the creatinine Reevaluation #2: Spoke with Marie again, I relayed to her that the creatinine corrected after fluid, that he was dehydrated that the ultrasound of the right upper quadrant was normal, chest x-ray was normal. She would like the patient to return to the nursing facility. She will be having discussion with staff in regard to implementing comfort measures/hospice. Reevaluation #3: 1016 12/30/23 -- urine culture returned positive for >100k ecoli, sensitive to cefazolin, ceftriaxone, ciprofloxacin, gentamicin, nitrofurantoin, Bactrim. Resistant to ampicillin. [facility]. I spoke to his nurse Marsha Gutierrez and discussed all urine results with her so that patient can be treated appropriately. I have also faxed the report to their facility at [phone]. -- Kylie Simpson Medications Administered Discontinued Medications Generic Name Dose Route Start Last Admin Trade Name Freq PRN Reason Stop Dose Admin Sodium Chloride 1,000 mls @ 999 mls/hr 12/25/23 16:45 12/25/23 18:04 Ns IV 12/25/23 17:45 Infused .Q1H1M ORACIO Infusion Sodium Chloride 1,000 mls @ 999 mls/hr 12/25/23 21:00 12/25/23 22:35 Ns IV 12/25/23 22:00 Infused .Q1H1M ORACIO Infusion Medical Decision Making Medical Decision Making MDM Narrative: 73-year-old male with a history of advanced vascular dementia, who is a DNR, DNI, with a MOLST in place for no interventions including transportation to the hospital, presents with failure to thrive. The patient has not been eating or drinking for several days. The facility called the family member who is the healthcare proxy to ask permission for treatment, they said he could come to the emergency department for assessment. Problem: Vascular dementia History: Per senior living records and EMS I have considered the following differential diagnoses: Sepsis, dehydration, electrolyte abnormality, failure to thrive, worsening dementia Plan: I spoke with the healthcare proxy her name is Marie. The proxy was invoked years ago. She states the MOLST is in place in the event that the patient develops serious illness and/or a need for surgery, if certain situations were to arise, treatment would be declined. If there is a mild reversible condition, i.e. minimal infection, that could be treated with medications / fluids etc, she is willing for us to implement these interventions. I point blank asked what she would like us to do. I am suggesting that we check labs, CXR, viral panel and give IV fluid. She is in agreement with the plan. I will check in with her once labs are complete and the patient has received fluid. I have independently reviewed the following tests: Labs: Leukocytosis, not anemic, KENNEDY of 1.54, no other electrolyte abnormalities, subtle elevation in LFTs which have been elevated in the past, ,viral panel negative urine not infected we will add an ultrasound of the right upper quadrant Chest x-ray:[address] [address] XRay Report Signed Patient: Alfonso Michele MR#: [id number] : 1950 Acct:[id number] Age/Sex: 73 / M ADM Date: 12/25/23 Loc: .ED Attending Dr: Ordering Physician: Carline Henderson Date of Service: 12/25/23 Procedure(s): XR chest 1V Accession Number(s): [id number] cc: Carline Henderson; Physician,Unknown ~ EXAMINATION: XR CHEST CLINICAL INFORMATION: Shortness of breath COMPARISON: None available. TECHNIQUE: Frontal view of the chest was obtained in the lordotic position. FINDINGS: Lungs are hypoinflated. Some left basilar atelectasis is seen. Heart size normal. No evidence of CHF. No pneumothorax. XR/XR chest 1V IMPRESSION: Hypoinflated lungs with left basilar atelectasis. Electronically signed by: Dennis Vazquez MD 12/25/2023 05:49 PM EDT Ultrasound right upper quadrant:S ABDOMEN LIMITED CLINICAL INFORMATION: Right upper quadrant pain. COMPARISON: None available. TECHNIQUE: Real-time imaging of the gallbladder and common bile duct only. FINDINGS: GALLBLADDER: The gallbladder could only be examined in the supine position as the patient was unable to turn into the decubitus position The gallbladder is physiologically distended without evidence of stones, sludge, polyps, wall thickening or pericholecystic fluid in the supine position. COMMON BILE DUCT: Normal in caliber measuring 0.5 cm in diameter. US/US abdomen limited IMPRESSION: Normal-appearing gallbladder and common bile duct. Electronically signed by: Dennis Vazquez MD 12/25/2023 07:04 PM EDT RP Lab Data 12/25/23 16:41 12/25/23 22:46 Labs: Lab Results 12/25/23 12/25/23 12/25/23 Range/Units 16:41 17:44 22:46 WBC 17.4 H (4.8-10.8) X10*3/uL RBC 3.82 L (4.60-5.80) X10*6/uL Hgb 11.3 L (14.0-18.0) g/dl Hct 34.7 L (42.0-52.0) % MCV 90.8 (80.0-98.0) fL MCH 29.6 (27.0-33.0) pg MCHC 32.6 (31.0-36.0) g/dl RDW 14.0 (11.0-16.0) % Plt Count 241 (160-400) X10*3/uL MPV 10.0 (9.4-12.4) fL Immature Gran % (Auto) 0.7 H (0.0-0.4) % Neut % (Auto) 84.0 H (45-73) % Lymph % (Auto) 9.3 L (20-40) % Campbell % (Auto) 5.3 (2-11) % Eos % (Auto) 0.2 (0-4) % Baso % (Auto) 0.5 (0-2) % Lymph # (Auto) 1.6 (1.2-4.9) X10*3/uL Campbell # (Auto) 0.9 (0.1-1.2) X10*3/uL Eos # (Auto) 0.0 (0.0-0.4) X10*3/uL Baso # (Auto) 0.1 (0.0-0.2) X10*3/uL Abs Immat Gran (auto) 0.12 H (0.00-0.03) X10*3/uL Absolute Neuts (auto) 14.6 H (2.0-8.3) x10*3/uL Absolute Nucleated RBC 0.000 (0.0-0.012) X10*3/uL Nucleated RBC % (auto) 0.0 (0.0-0.2) /100WBC Sodium 142 145 (135-145) mmol/L Potassium 3.7 3.9 (3.3-5.1) mmol/L Chloride 112 H 118 H (96-108) mmol/L Carbon Dioxide 19 L 20 L (22-29) mmol/L Anion Gap 15 11 L (12-20) BUN 53 H 45 H (9-16) mg/dL Creatinine 1.54 H 1.09 (0.5-1.4) mg/dL Estim Creat Clear Calc 35.3 49.9 Estimated GFR 45 > 60 Random Glucose 126 H 96 (60-115) mg/dL Calcium 8.8 8.3 L (8.4-10.2) mg/dL Magnesium 2.1 (1.6-2.6) mg/dL Total Bilirubin 0.2 (0.0-1.0) mg/dL AST 51 H (5-37) U/L ALT 73 H (0-40) U/L Alkaline Phosphatase 167 H (39-117) U/L Total Protein 6.6 (6.5-8.0) g/dL Albumin 3.3 L (3.5-5.0) g/dL Lipase 15 (8-78) U/L Urine Color Dark Yellow Urine Appearance Turbid Urine pH 5.5 (5.0-9.0) Ur Specific [place] 1.020 (1.005-1.025) Urine Protein 30 (1+) H (Neg-Trace) mg/dL Urine Glucose (UA) Negative (Negative) mg/dL Urine Ketones Trace (Negative) mg/dL Urine Blood Large (3+) H (Negative) Urine Nitrite Negative (Negative) Ur Leukocyte Esterase Large (3+) H (Negative) Urine RBC >20 H (0-2) /HPF Urine WBC >50 H (0-5) /HPF Ur Squamous Epith Cells 3-5 (0-2) /HPF Urine Bacteria 3+ (None Seen) Hyaline Casts 6-10 (0-2) /LPF Influenza Type A (PCR) NEGATIVE (Negative) Influenza Type B (PCR) NEGATIVE (Negative) RSV RNA Qual (PCR) NEGATIVE (Negative) SARS-CoV-2 RNA (RT-PCR) NEGATIVE (Negative) Discharge Plan Discharge Clinical Impression: Adult failure to thrive, Acute dehydration Patient Disposition: Home, Self-Care Instructions: Dehydration (ED), Failure to Thrive in Older Adults (ED) Additional Instructions: You were found to be clinically dehydrated. After 2 L of IV fluid therapy, your electrolyte abnormalities corrected. The remainder of your screening labs were normal. A chest x-ray revealed no acute findings. An ultrasound was obtained of structures associated with the liver, this was normal as well. Follow up with your primary care provider as needed. Prescriptions: No Action atorvastatin 80 mg tablet 1 tab PO DAILY sennosides [senna] 8.6 mg Tablet 17.2 mg PO DAILY polyethylene glycol 3350 [Miralax] 17 gram Powder In Packet 17 g PO DAILY melatonin 3 mg Tablet 3 mg PO BEDTIME clopidogrel 75 mg tablet 1 tab PO DAILY amlodipine 10 mg tablet 1 tab PO DAILY pantoprazole 40 mg tablet,delayed release (DR/EC) 1 tab PO DAILY gabapentin 300 mg Capsule 300 mg PO DAILY aspirin 81 mg Tablet,Chewable 81 mg PO DAILY albuterol sulfate 90 mcg/actuation Hfa Aerosol Inhaler 2 puff INHALATION Q4-6H PRN (Reason: Wheezing) sertraline 50 mg tablet 1 tab PO DAILY cholecalciferol (vitamin D3) 1,250 mcg (50,000 unit) Tablet 1,250 mcg PO QMONTH oxycodone 5 mg Tablet 5 mg PO Q6H PRN (Reason: moderate pain) Qty: 15 0RF enoxaparin 40 mg/0.4 mL Syringe 40 mg subcut Q24H Qty: 0 0RF Interventions: ED Discharge Assessment Last Done: 12/26/23 00:33 Discharge Date/Time: 12/26/23 00:40 Print Language: Wolof
[2023-12-25 16:49] LABS: Basophils Absolute Auto 0.1 X10*3/uL (0.0-0.2); Basophils Percent Auto 0.5 % (0-2); Eosinophils Percent Auto 0.2 % (0-4); Hematocrit 34.7 % (42.0-52.0); Hemoglobin 11.3 g/dl (14.0-18.0); Imm Gran Abs Auto 0.12 X10*3/uL (0.00-0.03); Imm Gran Pct Auto 0.7 % (0.0-0.4); Lymphocytes Absolute Auto 1.6 X10*3/uL (1.2-4.9); Lymphocytes Percent Auto 9.3 % (20-40); MANUAL DIFF FLAG NO; Mean Corpuscular HGB Conc 32.6 g/dl (31.0-36.0); Mean Corpuscular Hemoglobin 29.6 pg (27.0-33.0); Mean Corpuscular Volume 90.8 fL (80.0-98.0); Monocytes Absolute Auto 0.9 X10*3/uL (0.1-1.2); Monocytes Percent Auto 5.3 % (2-11); Neutrophils Absolute Auto 14.6 x10*3/uL (2.0-8.3); Platelet Count 241 X10*3/uL (160-400); Red Blood Count 3.82 X10*6/uL (4.60-5.80); White Blood Count 17.4 X10*3/uL (4.8-10.8)
[2023-12-25 17:05] LABS: Alanine Aminotransferase 73 U/L (0-40); Albumin Level 3.3 g/dL (3.5-5.0); Alkaline Phosphatase 167 U/L (39-117); Anion Gap 15 (12-20); Aspartate Amino Transferase 51 U/L (5-37); Bilirubin Total 0.2 mg/dL (0.0-1.0); Blood Urea Nitrogen 53 mg/dL (9-16); Calcium 8.8 mg/dL (8.4-10.2); Carbon Dioxide 19 mmol/L (22-29); Chloride 112 mmol/L (96-108); Creatinine Clr Calc Pharmacy 35.3; Estimated Glomerular Filt Rate 45; Glucose Random 126 mg/dL (60-115); Lipase 15 U/L (8-78); Magnesium 2.1 mg/dL (1.6-2.6); Potassium 3.7 mmol/L (3.3-5.1); Sodium 142 mmol/L (135-145); Total Protein 6.6 g/dL (6.5-8.0)
[2023-12-25] MEDS: 0.9 % Sodium Chloride 1,000 ML 999 ML IV ×2 (17:07→21:28)
[2023-12-25 17:27] LABS: Influenza A PCR NEGATIVE (Negative); Influenza B PCR NEGATIVE (Negative); Resp Syncy Virus RNA Qual PCR NEGATIVE (Negative); SARS COV2 PCR INHOUSE NEGATIVE (Negative)
--- NOTE | 2023-12-25 17:35 | PC.NURSE ---
patient responding to questions at this time. stating that he just feels tired, denies any pain. remains hypotensive at this time w/ fluids infusing. straight cath to obtain urine performed.
[2023-12-25 18:04] LABS: Appearance Urine Turbid; Color Urine Dark Yellow; Glucose Urine UA Negative (Negative); Leukocyte Esterase Urine Large (3+) (Negative); Nitrite Urine Negative (Negative); PH 5.5 (5.0-9.0); UMIC TRIGGER UACC YES; Urine Blood Large (3+) (Negative); Urine Ketones Trace mg/dL (Negative); Urine Protein 30 (1+) mg/dL (Neg-Trace)
[2023-12-25 18:19] LABS: Bacteria Urine 3+ (None Seen); RBC Urine >20 /HPF (0-2); UACC Culture Trigger YES; WBC Urine >50 /HPF (0-5)
[2023-12-25 23:17] LABS: Anion Gap 11 (12-20); Blood Urea Nitrogen 45 mg/dL (9-16); Calcium 8.3 mg/dL (8.4-10.2); Carbon Dioxide 20 mmol/L (22-29); Chloride 118 mmol/L (96-108); Creatinine Clr Calc Pharmacy 49.9; Estimated Glomerular Filt Rate > 60; Glucose Random 96 mg/dL (60-115); Potassium 3.9 mmol/L (3.3-5.1); Sodium 145 mmol/L (135-145)
[2023-12-26 00:33] VITALS: BP 92/51; PULSE 66; RESP 16; TEMP 36.6; O2SAT 96
== END 2023-12-26 00:40 | disposition home or self-care (01) ==
PROVIDERS: Physician Assistant Medical; Emergency Provider Emergency Medicine Emergency Medical Services
DX: E86.0 Dehydration (principal); R62.7 Adult failure to thrive; R10.11 Right upper quadrant pain; R06.02 Shortness of breath; F01.50 Vascular dementia, unspecified severity, without behavioral disturbance, psychotic disturbance, mood disturbance, and anxiety; I10 Essential (primary) hypertension; J44.9 Chronic obstructive pulmonary disease, unspecified; E78.5 Hyperlipidemia, unspecified; D72.829 Elevated white blood cell count, unspecified; Z68.1 Body mass index [BMI] 19.9 or less, adult; Z79.899 Other long term (current) drug therapy; Z03.818 Encounter for observation for suspected exposure to other biological agents ruled out
CPT/HCPCS: 0241U; 36415; 71045; 76705; 80048; 80053; 81001; 83690; 83735; 85025; 87086; 87088; 87186; 96360; 96361; 99285

== ENCOUNTER 2024-08-17 13:56 | Inpatient (IN) | payer MEDICARE, MEDICAID, SELFPAY ==
[2024-08-17] VITALS (8 sets, daily range): BP systolic 95–142; BP diastolic 47–69; PULSE 72–108; RESP 13–18; TEMP 36.5–38.7; O2SAT 94–97; BMI 21.4; BMI 22.0
--- NOTE | ~2024-08-17 | CT_ITS ---
EXAMINATION: CT HEAD WITHOUT IV CONTRAST HISTORY: altered mental status. TECHNIQUE: Unenhanced helical CT of the head was performed per standard departmental protocol. Coronal and sagittal reformats of the head were also evaluated. One or more of the following techniques was used for dose reduction: Automated exposure control, adjustment of the mA and/or kV according to patient size, use of iterative reconstruction technique. DLP: 772 mGy-cm COMPARISON: Comparison is made with the prior examination dated 08/22/2021. FINDINGS: BRAIN: There is diffuse prominence of the ventricular system and cortical sulci, consistent with atrophy. Periventricular and subcortical white matter hypodensities are noted which are nonspecific, but often seen in the setting of small vessel ischemic disease. Again seen are old right posterior parietal and left temporal occipital infarcts as well as old lacunar infarcts of the left thalamus and basal ganglia. There is no mass effect or midline shift. No intra- or extra-axial fluid collections are identified. SINUSES: The visualized paranasal sinuses are clear. The mastoid air cells and middle ear cavities are well pneumatized. ORBITS: The visualized orbits are unremarkable. BONES/SOFT TISSUES: The extracranial soft tissues are unremarkable. The calvarium is intact. No suspicious lytic or sclerotic lesions. CT/CT head/brain wo IV con IMPRESSION: No acute intracranial abnormality. Electronically signed by: Kendall Garcia MD 08/17/2024 03:35 PM EDT
--- NOTE | ~2024-08-17 | CT_ITS ---
CLINICAL HISTORY: elevated alk phos, poor po intake CT abdomen and pelvis without contrast Comparison: US/SR - US ABDOMEN LIMITED - 12/25/23 18:11 EDT DX/SR - XR PELVIS 1-2V - 10/06/21 10:43 EDT CR/SR - XR HIP BI W PEL1V - 08/22/21 14:19 EDT Findings: Linear atelectasis in the lower lobes. Normal heart size. Trace anterior pericardial effusion. Atrophic pancreas. Small soft tissue nodularity along the superior spleen. Spleen parenchyma itself is within normal limits. Large left renal mass involving the mid to lower pole measuring 9.3 x 6.8 x 8.8 cm. Left perinephric soft tissue mass measuring 8.0 x 4.7 x 7.6 cm. No hydronephrosis. No adrenal masses. 0.8 cm soft tissue nodule inferior to the liver. Moderate amount of stool throughout the colon. No bowel obstruction, pneumatosis or pneumoperitoneum. Aortic atherosclerosis. No aneurysm. Pelvic contents unremarkable. Normal appendix. No acute fracture. Degenerative changes of the spine. IMPRESSION: 1. Large left renal mass measuring 9.3 x 6.8 x 8.8 cm with associated left perinephric soft tissue mass measuring 8.0 x 4.7 x 7.6 cm, concerning for malignancy. 2. Small soft tissue nodularity along the superior spleen and 0.8 cm soft tissue nodule inferior to the liver, concerning for metastases. This document has been electronically signed by: Keren Chadwick MD on 08/17/2024 19:28:36
--- NOTE | ~2024-08-17 | XR_ITS ---
EXAMINATION: XR CHEST CLINICAL INFORMATION: weakness COMPARISON: 12/25/2023. TECHNIQUE: Frontal view of the chest was obtained. FINDINGS: The cardiac, hilar, and mediastinal contours are normal. The lungs are clear bilaterally. No pneumothorax or effusion. No focal osseous or soft tissue abnormality. XR/XR chest 1V IMPRESSION: No active pulmonary disease. Electronically signed by: Bruno Ndiaye MD 08/17/2024 02:54 PM EDT
--- NOTE | 2024-08-17 14:21 | ED.GENADULT ---
HPI - General Adult General Chief complaint: Recheck/Abnormal Lab/Rx Stated complaint: PER EMS ABN LABS Time Seen by Provider: 08/17/24 14:24 Source: family (Daughter, DEIRDRE) and EMS History of Present Illness ED Provider: Tamir FULTON narrative: The patient is a 73-year-old male. He is a long-term snf resident because of significant dementia. He currently lives at the [facility] facility in [place]. Apparently over the last 2 months he has a taken less by mouth than usual and he has seemed weaker and more withdrawn than usual. The snf staff says that he is only taking ensure these days. He has had outpatient labs done during the last week that indicate a rising sodium and chloride and BUN. The snf treated him yesterday with 1 L of D5 half-normal saline and repeated labs today but his labs worsened despite this treatment. There is a MOLST form which indicates that he should be DNR/DNI and do not transfer to hospital. However his daughter, Annamarie Don, who had signed the MOLST form in 2021 says that the family has different goals now and does not consider the current MOLST form to be accurate with regard to the patient's family's wishes. The patient is nonverbal and not able to give any additional history. There was no report of any fevers or vomiting or diarrhea. Related Data Home Medications ?Medication ?Instructions ?Recorded ?Confirmed albuterol sulfate 90 mcg/actuation 2 puff inhalation Q4-6H PRN 08/22/21 08/22/21 aerosol inhaler Wheezing amlodipine 10 mg tablet 1 tab PO DAILY 08/22/21 08/22/21 aspirin 81 mg chewable tablet 81 mg PO DAILY 08/22/21 08/22/21 atorvastatin 80 mg tablet 1 tab PO DAILY 08/22/21 08/22/21 cholecalciferol (vitamin D3) 1,250 1,250 mcg PO QMONTH 08/22/21 08/22/21 mcg (50,000 unit) tablet clopidogrel 75 mg tablet 1 tab PO DAILY 08/22/21 08/22/21 gabapentin 300 mg capsule 300 mg PO DAILY 08/22/21 08/22/21 melatonin 3 mg tablet 3 mg PO BEDTIME 08/22/21 08/22/21 pantoprazole 40 mg tablet,delayed 1 tab PO DAILY 08/22/21 08/22/21 release polyethylene glycol 3350 17 gram 17 g PO DAILY 08/22/21 08/22/21 oral powder packet (Miralax) sennosides 8.6 mg tablet (senna) 17.2 mg PO DAILY 08/22/21 08/22/21 sertraline 50 mg tablet 1 tab PO DAILY 08/22/21 08/22/21 Previous Rx's ?Medication ?Instructions ?Recorded enoxaparin 40 mg/0.4 mL 40 mg (0.4 mL) subcut Q24H #0 mL 08/23/21 subcutaneous syringe oxycodone 5 mg tablet 5 mg PO Q6H PRN moderate pain #15 08/23/21 tabs Allergies Allergy/AdvReac Type Severity Reaction Status Date / Time No Known Allergies Allergy Verified 08/17/24 14:22 Review of Systems Review of Systems: Yes Unobtainable due to mental status PMFSH Past Medical History Medical History COPD (chronic obstructive pulmonary disease) PUD (peptic ulcer disease) HLD (hyperlipidemia) HTN (hypertension) Vascular dementia Social History Social History Household Members: None Housing: [facility] Unable to assess alcohol history related to: Refusing to respond Alcohol intake: former Patient Tobacco Use Status: Former Tobacco user Advance Directives: Yes Advance Directives on File: Yes Advance Directives Date on File: 12/25/23 Do you have a plan to hurt others: No Plan service: No Current occupational status: disabled Physical Exam ED Vital Signs: Vital Signs - 24 hr 08/17/24 14:19 08/17/24 15:12 Temperature 97.7 F 99.6 F Pulse Rate 82 Respiratory Rate 16 Blood Pressure 117/60 Pulse Oximetry 94 Oxygen Delivery Method Room Air BMI result Body Mass Index 21.4 Const Other: The patient is a slim 73-year-old man who seems to be awake. His eyes are open. It does not seem in distress. He responds very little to interaction however. When I spoke to him he did not look at me or respond to my questions. When I touched him he looked at me but made poor eye contact. He did not seem in pain or respiratory distress HENMT Other: Face is symmetrical. Mucous membranes look somewhat dry. Eyes Other: Pupils are round equal, conjunctivae are clear, extraocular movements seem intact Neck Neck: Yes normal visual inspection, Yes full ROM and Yes no JVD Resp Effort & Inspection: normal respiratory effort Auscultation: clear to auscultation bilaterally Cardio Rate: regular rate Rhythm: regular rhythm Heart sounds: S1 normal heart sound present and S2 normal heart sound present GI Other: The abdomen was soft and does not seem tender. Rectal exam revealed pale brown mushy stool. No melena. Back/Spine/Pelvis Other: The appearance of the back is unremarkable. There is some slight redness to the skin over the sacrum. Skin Other: Skin is pale and dry. There is some minimal skin irritation in the sacral region. Neuro Other: The patient is awake but does not respond much to interaction. He was nonverbal. His face is symmetrical. The tone of his extremities seems symmetrical. He seems diffusely weak. Extrem Other: The patient has atrophic lower extremities. Medications Administered Discontinued Medications Generic Name Dose Route Start Last Admin Trade Name Thiago PRN Reason Stop Dose Admin Lactated Ringer's 1,000 mls @ 999 mls/hr 08/17/24 14:45 08/17/24 16:08 Lr IV 08/17/24 15:45 Infused .Q1H1M ORACIO Infusion Lactated Ringer's 1,000 mls @ 999 mls/hr 08/17/24 17:00 08/17/24 18:16 Lr IV 08/17/24 18:00 999 mls/hr .Q1H1M ORACIO Administration Medical Decision Making Medical Decision Making [facility] Narrative: The patient is a chronically ill severely demented 73-year-old who was sent to the emergency room by ambulance from his chronic snf essentially for failure to thrive as well as findings of dehydration and hypernatremia on labs at the snf. Here the patient was hemodynamically stable. We obtained a rectal temperature initially which was 99.6. Other vital signs were normal. He had a normal white count of 8.6. His differential showed 73% neutrophils and 17% lymphocytes. He had no obvious signs of infection on his physical exam. His chest x-ray was negative. His abdomen was benign. First attempt to obtain a urinalysis by straight cath was unsuccessful because the patient had just been incontinent of urine. His labs showed hypernatremia, hyperchloremia, an elevated BUN, all of which seemed to suggest significant dehydration. Given his elevated BUN I performed a digital rectal exam that showed non melenic stool. I was surprised when the lab reported his stool is heme positive. The patient was given IV fluids with lactated Ringer's. Eventually his bladder was sufficiently full that we were able to the repeat a straight cath and obtain a urine sample. His urinalysis was consistent with a probable UTI. At that point, at 18 40, the patient was also found to have a fever. At that point I ordered blood cultures, lactate, and IV ceftriaxone and a sepsis alert was called. The patient had arrived with a MOLST form indicating that he was DNR/DNI/do not hospitalize. His daughter says that these are not her the family's current wishes. The daughter was informed that the patient is being hospitalized. Lab Data 08/17/24 15:08 08/17/24 15:08 Labs: Lab Results 08/17/24 08/17/24 08/17/24 Range/Units 15:08 15:13 16:57 WBC 8.6 (4.8-10.8) X10*3/uL RBC 3.71 L (4.60-5.80) X10*6/uL Hgb 9.7 L (14.0-18.0) g/dl Hct 32.9 L (42.0-52.0) % MCV 88.7 (80.0-98.0) fL MCH 26.1 L (27.0-33.0) pg MCHC 29.5 L (31.0-36.0) g/dl RDW 16.4 H (11.0-16.0) % Plt Count 311 D (160-400) X10*3/uL MPV 11.8 (9.4-12.4) fL Immature Gran % (Auto) 0.2 (0.0-0.4) % Neut % (Auto) 73.5 H (45-73) % Lymph % (Auto) 17.1 L (20-40) % Mcpherson % (Auto) 7.0 (2-11) % Eos % (Auto) 1.7 (0-4) % Baso % (Auto) 0.5 (0-2) % Lymph # (Auto) 1.5 (1.2-4.9) X10*3/uL Mcpherson # (Auto) 0.6 (0.1-1.2) X10*3/uL Eos # (Auto) 0.2 (0.0-0.4) X10*3/uL Baso # (Auto) 0.0 (0.0-0.2) X10*3/uL Abs Immat Gran (auto) 0.02 (0.00-0.03) X10*3/uL Absolute Neuts (auto) 6.3 (2.0-8.3) x10*3/uL Absolute Nucleated RBC 0.000 (0.0-0.012) X10*3/uL Nucleated RBC % (auto) 0.0 (0.0-0.2) /100WBC Smear Tech's Comments VERIFIED VBG pH 7.41 (7.32-7.43) VBG pCO2 40 mmHg VBG pO2 38 mmHg VBG HCO3 26 (22-26) mmol/L VBG O2 Saturation 61.0 % VBG Base Excess 1.9 mmol/L Sodium 154 H (135-145) mmol/L Potassium 4.5 (3.3-5.1) mmol/L Chloride 117 H (96-108) mmol/L Carbon Dioxide 24 (22-29) mmol/L Anion Gap 18 (12-20) BUN 60 H (9-16) mg/dL Creatinine 1.18 (0.5-1.4) mg/dL Estim Creat Clear Calc 42.5 Estimated GFR > 60 Random Glucose 103 (60-115) mg/dL Calcium 9.2 D (8.4-10.2) mg/dL Magnesium 2.3 (1.6-2.6) mg/dL Total Bilirubin 0.2 (0.0-1.0) mg/dL Direct Bilirubin < 0.2 (0.0-0.5) mg/dL AST 37 (5-37) U/L ALT 43 H (0-40) U/L Alkaline Phosphatase 207 H (39-117) U/L C-Reactive Protein 18.61 H (< or = 0.50) mg/dL B-Natriuretic Peptide 39 (<100) pg/mL Total Protein 7.8 (6.5-8.0) g/dL Albumin 3.4 L (3.5-5.0) g/dL TSH 4.67 H (0.32-4.0) uIU/mL Stool Occult Blood POSITIVE (NEGATIVE) Critical Care Time Critical Care Time Critical Care Time: Yes Total Critical Care Time: 35 Attestation: The patient was critically ill with a high probability of imminent or life-threatening deterioration. ?I spent greater than 30 minutes of discontinuous time evaluating the patient, delivering critical care at the bedside, discussing evaluating data with consultants. ?Critical care time does not include time spent performing separately billable procedures or teaching. ?Time spent performing critical care with 35 minutes. Discharge Plan Discharge Clinical Impression: Dehydration, Hypernatremia, Dementia, Urinary tract infection Patient Disposition: Admitted As Inpatient
--- NOTE | 2024-08-17 14:34 | ECG_ITS ---
Test Reason : weakness Blood Pressure : */* mmHG Vent. Rate : 81 BPM Atrial Rate : 81 BPM P-R Int : 188 ms QRS Dur : 78 ms QT Int : 360 ms P-R-T Axes : 21 60 72 degrees QTcB Int : 418 ms Normal sinus rhythm Normal ECG When compared with ECG of 22-Aug-2021 11:14, No significant change was found Referred By: Segundo Garnett Electronically Signed By: Marino Alex
[2024-08-17] MEDS: Lactated Ringers 1,000 ML 999 ML IV ×2 (15:08→18:16)
[2024-08-17 15:14] LABS: Hematocrit 32.9 % (42.0-52.0); Mean Platelet Volume 11.8 fL (9.4-12.4); PLT CLUMP 1; Red Cell Distribution Width 16.4 % (11.0-16.0); SCAN SMEAR FLAG 1
[2024-08-17 15:16] LABS: Basophils Percent Auto 0.5 % (0-2); Eosinophils Absolute Auto 0.2 X10*3/uL (0.0-0.4); Eosinophils Percent Auto 1.7 % (0-4); Hemoglobin 9.7 g/dl (14.0-18.0); Imm Gran Abs Auto 0.02 X10*3/uL (0.00-0.03); Imm Gran Pct Auto 0.2 % (0.0-0.4); Lymphocytes Absolute Auto 1.5 X10*3/uL (1.2-4.9); Lymphocytes Percent Auto 17.1 % (20-40); MANUAL DIFF FLAG SCAN; Mean Corpuscular HGB Conc 29.5 g/dl (31.0-36.0); Mean Corpuscular Hemoglobin 26.1 pg (27.0-33.0); Mean Corpuscular Volume 88.7 fL (80.0-98.0); Monocytes Absolute Auto 0.6 X10*3/uL (0.1-1.2); Neutrophils Absolute Auto 6.3 x10*3/uL (2.0-8.3); Neutrophils Percent Auto 73.5 % (45-73); Red Blood Count 3.71 X10*6/uL (4.60-5.80)
[2024-08-17 15:17] LABS: VBG Base Excess 1.9 mmol/L; VBG HCO3 26 mmol/L (22-26); VBG pCO2 40 mmHg; VBG pH 7.41 (7.32-7.43); VBG pO2 38 mmHg
[2024-08-17 15:21] LABS: Venous Blood Gas Refer to POC result
[2024-08-17 15:32] LABS: Platelet Count 311 X10*3/uL (160-400); White Blood Count 8.6 X10*3/uL (4.8-10.8)
[2024-08-17 15:33] LABS: SLIDE REVIEW VERIFIED
--- NOTE | 2024-08-17 15:44 | MHC.EDTECH ---
condom cath was placed on pt with good tolerance, RN aware
[2024-08-17 15:52] LABS: Thyroid Stimulating Hormone 4.67 uIU/mL (0.32-4.0)
[2024-08-17 15:58] LABS: Alanine Aminotransferase 43 U/L (0-40); Albumin Level 3.4 g/dL (3.5-5.0); Anion Gap 18 (12-20); Aspartate Amino Transferase 37 U/L (5-37); Bilirubin Direct < 0.2 mg/dL (0.0-0.5); Bilirubin Total 0.2 mg/dL (0.0-1.0); Blood Urea Nitrogen 60 mg/dL (9-16); C Reactive Protein 18.61 mg/dL (< or = 0.50); Calcium 9.2 mg/dL (8.4-10.2); Carbon Dioxide 24 mmol/L (22-29); Chloride 117 mmol/L (96-108); Creatinine Clr Calc Pharmacy 42.5; Estimated Glomerular Filt Rate > 60; Glucose Random 103 mg/dL (60-115); Magnesium 2.3 mg/dL (1.6-2.6); Potassium 4.5 mmol/L (3.3-5.1); Sodium 154 mmol/L (135-145); Total Protein 7.8 g/dL (6.5-8.0)
--- OUTSIDE RECORDS SUMMARY | 2024-08-17 16:01 | XMS_ITS | Encounter Summary ---
Author Organization [employer] [facility] Address [address] [place] [address] Care Team Providers Care [employer] Leader Name Role Phone Joslyn Doyle MD Primary Care Provider + Encounter Details Date Type Department Care Team (Late st Contact Info) Description 02/17/2024 Lab Requisition [facility] - Main Lab [address] [facility] [place] [address] Joslyn Doyle MD [address] [facility] [address] [place], [place] [id number] Moderate protein-calorie malnutrition (CMS/HCC V24) Social History Tobacco Use Types Packs/Day Years Used Date Smoking Tobacco: Never Assessed Sex and Gender Information Value Date Recorded Sex Assigned at Not on file Legal Sex Male 10:49 PM EST Gender Identity Not on file Sexual Orientation Not on file documented as of this encounter Plan of Treatment Not on file documented as of this encounter Procedures Procedure Name Priority Date/Time Associated Diagnosis Comments BASIC METABOLIC PANEL Routine 02/17/2024 6:11 AM EST Moderate protein-calorie malnutrition (CMS/HCC) documented in this encounter Results * (ABNORMAL) Basic metabolic panel (02/17/2024 6:11 AM EST) Sodium 144 133 - 145 mmol/L LAB CHEMISTRY METHOD 02/17/2024 9:01 AM EST [facility] Potassium 4.5 3.5 - 5.5 mmol/L LAB CHEMISTRY METHOD 02/17/2024 9:01 AM EST [facility] Chloride 113(H) 96 - 110 mmol/L LAB CHEMISTRY METHOD 02/17/2024 9:01 AM EST [facility] CO2 23 21 - 32 mmol/L LAB CHEMISTRY METHOD 02/17/2024 9:01 AM [facility] Anion Gap 8 3 - 11 LAB CHEMISTRY METHOD 02/17/2024 9:01 AM [facility] Glucose 85 70 - 100 mg/dL LAB CHEMISTRY METHOD 02/17/2024 9:01 AM [facility] BUN 38(H) 5 - 25 mg/dL LAB CHEMISTRY METHOD 02/17/2024 9:01 AM [facility] Creatinine 0.92 0.70 - 1.30 mg/dL LAB CHEMISTRY METHOD 02/17/2024 9:01 AM [facility] eGFR 88 >=60 mL/min/1. 73m2 LAB CHEMISTRY METHOD 02/17/2024 9:01 AM [facility] Comment:Calculation based on the??Chronic Kidney Disease Epidemiology Collaboration (CKD-EPI) equation refit??without adjustment for race. BUN/Creatinine Ratio 41.3 LAB CHEMISTRY METHOD 02/17/2024 9:01 AM [facility] Calcium 9.0 8.5 - 10.5 mg/dL LAB CHEMISTRY METHOD 02/17/2024 9:01 AM [facility] Blood Venous blood specimen / Unknown 02/17/2024 6:11 AM EST 02/17/2024 7:46 AM EST us Joslyn Doyle MD LAB BLOOD ORDERABLES Fin al Result [facility]) [facility] [address] [place] [address], [place] [phone] documented in this encounter Visit Diagnoses Diagnosis Moderate protein-calorie malnutrition (CMS/HCC V24) documented in this encounter Care Teams [employer] Leader Relationship Specialty Start Date End Date Joslyn Doyle MD [address] [address] PCP - General Family Medicine 11/21/24 documented as of this encounter
[2024-08-17 16:45] LABS: B Type Natriuretic Peptide 39 pg/mL (<100)
[2024-08-17 17:06] LABS: OBS Int Ctl Valid YES; OBS1 POSITIVE (NEGATIVE)
--- NOTE | 2024-08-17 17:28 | P.HPHOSP_ITS ---
History of Present Illness Date of Service: 08/17/24 Chief Complaint: hypernatremia 73M PMH htn, cva with vascular dementia form [facility] facility, non ambulatory but feeds self, conversive and recognizes people at baseline. Patient was noted to be at his baseline about a week prior to presentation. Over the past week patient has been less conversive, not feeding himself, eating and drinking less. Did not note any fevers or chills. Patient is unable to provide history himself. Currently nonverbal. Labs in long-term facility showed signs of dehydration with hypernatremia so he was sent to the ED. In ED sodium is 154, CRP 18.61. No obvious signs of sepsis, chest x-ray unremarkable. No urine to send for UA. Review of Systems 2 Review of Systems: Yes all other systems are reviewed and are negative [facility] Medical History COPD (chronic obstructive pulmonary disease) PUD (peptic ulcer disease) HLD (hyperlipidemia) HTN (hypertension) Vascular dementia Social History Household Members: None Housing: [facility] Unable to assess alcohol history related to: Refusing to respond Alcohol intake: former Patient Tobacco Use Status: Former Tobacco user Advance Directives: Yes Advance Directives on File: Yes Advance Directives Date on File: 12/25/23 Do you have a plan to hurt others: No Plan service: No Current occupational status: disabled Meds Allergies Allergy/AdvReac Type Severity Reaction Status Date / Time No Known Allergies Allergy Verified 08/17/24 14:22 Active Medications: Current Medications Acetaminophen (Acetaminophen 325 Mg Tablet) 650 mg PO Q6H PRN PRN Reason: Pain, Mild 1-3,fever,headache Calcium Carbonate (Calcium Carbonate 750 Mg Tab.Chew) 750 mg PO Q4H PRN PRN Reason: Heartburn Enoxaparin Sodium (Enoxaparin Sodium 40 Mg/0.4 Ml Syringe) 40 mg SUBCUT Q24H ORACIO Lactated Ringer's (Lr) 1,000 mls @ 999 mls/hr IV .Q1H1M ORACIO Stop: 08/17/24 18:00 Dextrose/Sodium Chloride (D51/2ns) 1,000 mls @ 100 mls/hr IVCONT .Q10H ORACIO Magnesium Hydroxide (Milk Of Magnesia 30 Ml Oral.Susp) 30 ml PO DAILY PRN PRN Reason: Constipation Melatonin (Melatonin 3 Mg Tablet) 6 mg PO BEDTIME PRN PRN Reason: Insomnia Sodium Chloride (0.9 % Sodium Chloride Flush 3 Ml Syringe) 3 ml IVFLUSH QSHIFT [facility] Home Medications ?Medication ?Instructions ?Recorded ?Confirmed ?Last Taken ?Type albuterol sulfate 90 mcg/actuation 2 puff inhalation Q4-6H PRN 08/22/21 08/22/21 Unknown History aerosol inhaler Wheezing amlodipine 10 mg tablet 1 tab PO DAILY 08/22/21 08/22/21 Unknown History aspirin 81 mg chewable tablet 81 mg PO DAILY 08/22/21 08/22/21 Unknown History atorvastatin 80 mg tablet 1 tab PO DAILY 08/22/21 08/22/21 Unknown History cholecalciferol (vitamin D3) 1,250 1,250 mcg PO QMONTH 08/22/21 08/22/21 08/01/21 History mcg (50,000 unit) tablet clopidogrel 75 mg tablet 1 tab PO DAILY 08/22/21 08/22/21 Unknown History gabapentin 300 mg capsule 300 mg PO DAILY 08/22/21 08/22/21 Unknown History melatonin 3 mg tablet 3 mg PO BEDTIME 08/22/21 08/22/21 Unknown History pantoprazole 40 mg tablet,delayed 1 tab PO DAILY 08/22/21 08/22/21 Unknown History release polyethylene glycol 3350 17 gram 17 g PO DAILY 08/22/21 08/22/21 Unknown History oral powder packet (Miralax) sennosides 8.6 mg tablet (senna) 17.2 mg PO DAILY 08/22/21 08/22/21 Unknown History sertraline 50 mg tablet 1 tab PO DAILY 08/22/21 08/22/21 Unknown History Physical Exam 2 Vital Signs and Narrative: Vital Signs: Last Vital Signs Temp 99.6 F 08/17/24 15:12 Pulse 82 08/17/24 14:19 Resp 16 08/17/24 14:19 BP 117/60 08/17/24 14:19 Pulse Ox 94 08/17/24 14:19 O2 Del Method Room Air 08/17/24 14:19 BMI result Body Mass Index 21.4 Alert but nonverbal, not tracking, not following commands Results Labs 08/17/24 15:08 08/17/24 15:08 Labs: Laboratory Results - last 24 hr 08/17/24 08/17/24 08/17/24 15:08 15:13 16:57 MCV 88.7 MCH 26.1 L MCHC 29.5 L RDW 16.4 H Plt Count 311 D MPV 11.8 Immature Gran % (Auto) 0.2 Neut % (Auto) 73.5 H Lymph % (Auto) 17.1 L Dare % (Auto) 7.0 Eos % (Auto) 1.7 Baso % (Auto) 0.5 Lymph # (Auto) 1.5 Dare # (Auto) 0.6 Eos # (Auto) 0.2 Baso # (Auto) 0.0 Abs Immat Gran (auto) 0.02 Absolute Neuts (auto) 6.3 Absolute Nucleated RBC 0.000 Nucleated RBC % (auto) 0.0 Smear Tech's Comments VERIFIED VBG pH 7.41 VBG pCO2 40 VBG pO2 38 VBG HCO3 26 VBG O2 Saturation 61.0 VBG Base Excess 1.9 Anion Gap 18 Estim Creat Clear Calc 42.5 Estimated GFR > 60 Random Glucose 103 Calcium 9.2 D Magnesium 2.3 Total Bilirubin 0.2 Direct Bilirubin < 0.2 AST 37 ALT 43 H C-Reactive Protein 18.61 H B-Natriuretic Peptide 39 Total Protein 7.8 Albumin 3.4 L TSH 4.67 H Stool Occult Blood POSITIVE Imaging Radiologist's Impressions: Impressions Chest X-Ray 08/17/24 14:34 IMPRESSION: No active pulmonary disease. Electronically signed by: Bruno Ndiaye MD 08/17/2024 02:54 PM EDT RP Head CT 08/17/24 14:55 IMPRESSION: No acute intracranial abnormality. Electronically signed by: Kendall Garcia MD 08/17/2024 03:35 PM EDT RP Assessment and Plan (1) Vascular dementia: Status: Acute Plan 73M PMH htn, cva with vascular dementia form [facility] facility, non ambulatory but feeds self, conversive and recognizes people at baseline. Presented with hypernatremia Acute metabolic encephalopathy due to hypernatremia Given LR in ED, continue with D5 half-normal saline, monitor bmp Elevated CRP and alk-phos Check CT abdomen Follow up UA Hypertension Low normal blood pressures, we will hold for now Vascular dementia Continue statin and antiplatelet DVT prophylaxis with Lovenox Full Code Given degree of hypernatremia expected to require at least 2 midnights inpatient Quality Stroke Does the patient have a stroke diagnosis?: No VTE Prior VTE?: No VTE Risk Level:: Medical - moderate - high VTE Device Contraindication: Treatment Not Indicated VTE Drug Contraindication: N/A - Med Ordered
[2024-08-17 18:17] LABS: Alkaline Phosphatase 207 U/L (39-117)
[2024-08-17 18:30] LABS: Appearance Urine Cloudy; Color Urine Yellow; Glucose Urine UA Negative (Negative); Leukocyte Esterase Urine Large (3+) (Negative); Nitrite Urine Positive (Negative); Specific Gravity - Urine 1.015 (1.005-1.025); UMIC TRIGGER UACC YES; Urine Blood Moderate (2+) (Negative); Urine Ketones Negative (Negative); Urine Protein 30 (1+) mg/dL (Neg-Trace)
[2024-08-17 18:35] LABS: Bacteria Urine 4+ (None Seen); Hyaline Casts Urine 0-2 /LPF (0-2); RBC Urine >20 /HPF (0-2); Squamous Epithelial Cell Urine 0-2 /HPF (0-2); UACC Culture Trigger YES; WBC Urine >50 /HPF (0-5)
--- NOTE | 2024-08-17 19:19 | PC.NURSE ---
Took over care at 19:00, labs collected and sent.
[2024-08-17] MEDS: cefTRIAXone sodium 1 GM VIAL IVPUSH (19:30)
[2024-08-17 19:31] LABS: Lactic Acid 5.7 mmol/L (0.5-2.0)
[2024-08-17] MEDS: Dextrose 5 % and 0.45 % NaCl 1,000 ML 100 ML IVCONT (19:33)
--- NOTE | 2024-08-17 19:40 | PHA.MEDREC ---
Pharmacy Consult ? Medication Reconciliation Pharmacy has completed the medication reconciliation, utilized list from [facility] + claims.
[2024-08-17] MEDS: Acetaminophen Supp 325 MG SUPP.RECT 975 MG PR (19:47)
--- NOTE | 2024-08-17 19:50 | PC.NURSE ---
Medicated per mar, fluids started, pressure dressing to coccyx, pt placed on monitor.
--- NOTE | 2024-08-17 21:02 | PC.NURSE ---
pt repositioned , [place] cath placed,repositioned
[2024-08-17 21:08] LABS: Reflex Lactate? Lactic Acid Added
--- NOTE | 2024-08-17 22:34 | HO.SKINPHOTO ---
Location: coccyx Category: pressure Stage: 2 Length: Width: Depth: cm Location: rt elbow Category: scab Stage: Length: Width: Depth: cm Location: lt heel Category: Stage: Length: Width: Depth: cm Location: rt heel Category: Stage: Length: Width: Depth: cm Location: Category: Stage: Length: Width: Depth: cm Location: Category: Stage: Length: Width: Depth: cm
--- NOTE | 2024-08-17 22:38 | PC.NURSE ---
pt arrived from ed, advanced dementia, non verbal, bed bound. on arrival pt noted with rt elbow scabbed area, katia heel red/blanchable, stage 2 coccyx. foam dsg applied to coccyx and rt elbow, pressure boots applied to katia feet and airloss bed applied. pictures taken and wound consult has been placed
[2024-08-17 22:40] LABS: ~Lactic Acid-LAB USE ONLY 1.8 mmol/L (0.5-2.0)
[2024-08-18] VITALS (8 sets, daily range): BP systolic 90–113; BP diastolic 50–69; PULSE 74–108; RESP 14–17; TEMP 36.8–39.4; O2SAT 95–100; BMI 22.0
[2024-08-18] MEDS: Dextrose 5 % and 0.45 % NaCl 1,000 ML 100 ML IVCONT ×3 (03:31→22:37)
[2024-08-18] MEDS: Acetaminophen 325 MG TABLET 650 MG PO (03:32)
--- NOTE | 2024-08-18 05:04 | MHC.PIE ---
p; temp 99.2 auxiliary at 0332. prn Tylenol given at 0332. temp now 102.9 rectal. i; ice packs placed i; dr latham notified. new order iv Tylenol now e; will cont to monitor
[2024-08-18] MEDS: Acetaminophen 1,000 MG/100 ML PIGGYBACK 400 MG IV (05:19)
[2024-08-18 05:53] LABS: Hematocrit 26.8 % (42.0-52.0); Hemoglobin 8.1 g/dl (14.0-18.0); Mean Corpuscular HGB Conc 30.2 g/dl (31.0-36.0); Mean Corpuscular Hemoglobin 26.5 pg (27.0-33.0); Mean Corpuscular Volume 87.6 fL (80.0-98.0); Mean Platelet Volume 11.1 fL (9.4-12.4); Platelet Count 329 X10*3/uL (160-400); Red Blood Count 3.06 X10*6/uL (4.60-5.80); Red Cell Distribution Width 16.3 % (11.0-16.0); White Blood Count 8.8 X10*3/uL (4.8-10.8)
[2024-08-18 06:09] LABS: Alanine Aminotransferase 34 U/L (0-40); Albumin Level 2.6 g/dL (3.5-5.0); Alkaline Phosphatase 186 U/L (39-117); Anion Gap 14 (12-20); Aspartate Amino Transferase 37 U/L (5-37); Bilirubin Direct 0.3 mg/dL (0.0-0.5); Bilirubin Total 0.4 mg/dL (0.0-1.0); Blood Urea Nitrogen 45 mg/dL (9-16); Calcium 8.1 mg/dL (8.4-10.2); Carbon Dioxide 19 mmol/L (22-29); Chloride 120 mmol/L (96-108); Creatinine Clr Calc Pharmacy 49.5; Estimated Glomerular Filt Rate > 60; Glucose Random 108 mg/dL (60-115); Magnesium 1.8 mg/dL (1.6-2.6); Potassium 3.6 mmol/L (3.3-5.1); Sodium 149 mmol/L (135-145); Total Protein 5.9 g/dL (6.5-8.0)
--- NOTE | 2024-08-18 08:50 | W.MHC.ACPN ---
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 Decision made to continue treatment for acute infection with goal of trying to get patient as close as possible back to his baseline from about week ago. But given that patient is unlikely to benefit from any further workup of his suspected renal cell cancer would then be interested in hospice informational. Would also like to change code status to DNR/DNI Problems Discussed (1) Vascular dementia:
--- NOTE | 2024-08-18 08:52 | HO.PM.IMPN ---
Subjective Subjective Date of Service: 08/18/24 Review of Systems Review of Systems: Yes Unobtainable due to mental condition Physical Exam Vital Signs: Vital Signs: Last Vital Signs Temp 98.5 F 08/18/24 07:45 Pulse 75 08/18/24 07:45 Resp 16 08/18/24 07:45 BP 91/53 L 08/18/24 07:45 Pulse Ox 98 08/18/24 07:45 O2 Del Method Room Air 08/18/24 07:45 BMI result Body Mass Index 22.0 Alert but nonverbal, not tracking, not following commands Objective Data Active Medications Acetaminophen (Acetaminophen 325 Mg Tablet) 650 mg PO Q6H PRN PRN Reason: Pain, Mild 1-3,fever,headache Last Admin: 08/18/24 03:32 Dose: 650 mg Documented By: ACLI Aspirin (Aspirin 81 Mg Tab.Chew) 81 mg PO DAILY [facility] Atorvastatin Calcium (Atorvastatin Calcium 40 Mg Tablet) 40 mg PO DAILY [facility] Calcium Carbonate (Calcium Carbonate 750 Mg Tab.Chew) 750 mg PO Q4H PRN PRN Reason: Heartburn Ceftriaxone Sodium (Ceftriaxone Sodium 1 Gm Vial) 1 gm IVPUSH Q24H [facility] Clopidogrel Bisulfate (Clopidogrel Bisulfate 75 Mg Tablet) 75 mg PO DAILY [facility] Enoxaparin Sodium (Enoxaparin Sodium 40 Mg/0.4 Ml Syringe) 40 mg SUBCUT Q24H [facility] Dextrose/Sodium Chloride (D51/2ns) 1,000 mls @ 100 mls/hr IVCONT .Q10H [facility] Last Admin: 08/18/24 03:31 Dose: 100 mls/hr Documented By: CALI Magnesium Hydroxide (Milk Of Magnesia 30 Ml Oral.Susp) 30 ml PO DAILY PRN PRN Reason: Constipation Melatonin (Melatonin 3 Mg Tablet) 6 mg PO BEDTIME PRN PRN Reason: Insomnia Polyethylene Glycol (Polyethylene Glycol 3350 17 Gm Powd.Pack) 17 gm PO DAILY [facility] Sertraline HCl (Sertraline Hcl 50 Mg Tablet) 50 mg PO DAILY [facility] Sodium Chloride (0.9 % Sodium Chloride Flush 3 Ml Syringe) 3 ml IVFLUSH QSHIFT [facility]AC[facility] Last Admin: 08/17/24 21:59 Dose: Not Given Documented By: CALI Non-Admin Reason: IV Running Labs 08/18/24 05:28 08/18/24 05:28 Labs: Laboratory Results - last 24 hr 08/17/24 08/17/24 08/17/24 15:08 15:13 16:57 MCV 88.7 MCH 26.1 L MCHC 29.5 L RDW 16.4 H Plt Count 311 D MPV 11.8 Immature Gran % (Auto) 0.2 Neut % (Auto) 73.5 H Lymph % (Auto) 17.1 L [place] % (Auto) 7.0 Eos % (Auto) 1.7 Baso % (Auto) 0.5 Lymph # (Auto) 1.5 [place] # (Auto) 0.6 Eos # (Auto) 0.2 Baso # (Auto) 0.0 Abs Immat Gran (auto) 0.02 Absolute Neuts (auto) 6.3 Absolute Nucleated RBC 0.000 Nucleated RBC % (auto) 0.0 Smear Tech's Comments VERIFIED Hold Purple Top Hold Blue Top VBG pH 7.41 VBG pCO2 40 VBG pO2 38 VBG HCO3 26 VBG O2 Saturation 61.0 VBG Base Excess 1.9 Anion Gap 18 Estim Creat Clear Calc 42.5 Estimated GFR > 60 Random Glucose 103 Lactic Acid Lactic Acid F/U @ 2Hr Calcium 9.2 D Magnesium 2.3 Total Bilirubin 0.2 Direct Bilirubin < 0.2 AST 37 ALT 43 H Alkaline Phosphatase 207 H C-Reactive Protein 18.61 H B-Natriuretic Peptide 39 Total Protein 7.8 Albumin 3.4 L TSH 4.67 H Urine Color Urine Appearance Urine pH Ur Specific [place] Urine Protein Urine Glucose (UA) Urine Ketones Urine Blood Urine Nitrite Ur Leukocyte Esterase Urine RBC Urine WBC Ur Squamous Epith Cells Urine Bacteria Hyaline Casts Stool Occult Blood POSITIVE 08/17/24 08/17/24 08/17/24 18:16 19:04 21:54 MCV MCH MCHC RDW Plt Count MPV Immature Gran % (Auto) Neut % (Auto) Lymph % (Auto) [place] % (Auto) Eos % (Auto) Baso % (Auto) Lymph # (Auto) [place] # (Auto) Eos # (Auto) Baso # (Auto) Abs Immat Gran (auto) Absolute Neuts (auto) Absolute Nucleated RBC Nucleated RBC % (auto) Smear Tech's Comments Hold Purple Top SEE NOTE Hold Blue Top SEE NOTE VBG pH VBG pCO2 VBG pO2 VBG HCO3 VBG O2 Saturation VBG Base Excess Anion Gap Estim Creat Clear Calc Estimated GFR Random Glucose Lactic Acid 5.7 H* Lactic Acid F/U @ 2Hr 1.8 Calcium Magnesium Total Bilirubin Direct Bilirubin AST ALT Alkaline Phosphatase C-Reactive Protein B-Natriuretic Peptide Total Protein Albumin TSH Urine Color Yellow Urine Appearance Cloudy Urine pH 7.0 Ur Specific [place] 1.015 Urine Protein 30 (1+) H Urine Glucose (UA) Negative Urine Ketones Negative Urine Blood Moderate (2+) H Urine Nitrite Positive H Ur Leukocyte Esterase Large (3+) H Urine RBC >20 H Urine WBC >50 H Ur Squamous Epith Cells 0-2 Urine Bacteria 4+ Hyaline Casts 0-2 Stool Occult Blood 08/18/24 05:28 MCV 87.6 MCH 26.5 L MCHC 30.2 L RDW 16.3 H Plt Count 329 MPV 11.1 Immature Gran % (Auto) Neut % (Auto) Lymph % (Auto) [place] % (Auto) Eos % (Auto) Baso % (Auto) Lymph # (Auto) [place] # (Auto) Eos # (Auto) Baso # (Auto) Abs Immat Gran (auto) Absolute Neuts (auto) Absolute Nucleated RBC 0.000 Nucleated RBC % (auto) 0.0 Smear Tech's Comments Hold Purple Top Hold Blue Top VBG pH VBG pCO2 VBG pO2 VBG HCO3 VBG O2 Saturation VBG Base Excess Anion Gap 14 Estim Creat Clear Calc 49.5 Estimated GFR > 60 Random Glucose 108 Lactic Acid Lactic Acid F/U @ 2Hr Calcium 8.1 L D Magnesium 1.8 Total Bilirubin 0.4 Direct Bilirubin 0.3 AST 37 ALT 34 Alkaline Phosphatase 186 H C-Reactive Protein B-Natriuretic Peptide Total Protein 5.9 L Albumin 2.6 L TSH Urine Color Urine Appearance Urine pH Ur Specific [place] Urine Protein Urine Glucose (UA) Urine Ketones Urine Blood Urine Nitrite Ur Leukocyte Esterase Urine RBC Urine WBC Ur Squamous Epith Cells Urine Bacteria Hyaline Casts Stool Occult Blood Assessment and Plan (1) Hypernatremia: Status: Acute Plan 73M PMH htn, cva with vascular dementia form [facility] facility, non ambulatory but feeds self, conversive and recognizes people at baseline. Presented with hypernatremia Acute metabolic encephalopathy due to sepsis from acute pyelonephritis complicated by acute hypernatremia given fluid bolus in ED, now on hypotonic fluids, monitor roc[place], cultures suspected metastatic left renal cell cancer d/w hcp, see ACP note likely no further work up Hypertension Low normal blood pressures, we will hold for now Vascular dementia Continue statin and antiplatelet DVT prophylaxis with Lovenox DNR/DNI reason for continued hospitalization:sepsis Quality Stroke Does the patient have a stroke diagnosis?: No VTE Prior VTE?: No VTE Risk Level:: Medical - moderate - high VTE Device Contraindication: Treatment Not Indicated VTE Drug Contraindication: N/A - Med Ordered
--- NOTE | 2024-08-18 09:07 | MHC.CM.PN ---
CM assessment completed w/ daughter/invoked HCPAnnamarie, via telephone. IMM delivered. [facility] Uses w/c. Dependent w/ care. PCP Sonia Doyle MD HCP/JIHAN on file and verified. DP: Return to LTC @ [facility]. Daughter would like hospice on return. Will be coordinated by SNF. BLS transport. CM will continue to follow.
[2024-08-18] MEDS: Aspirin 81 MG TAB.CHEW PO (09:31)
[2024-08-18] MEDS: Atorvastatin Calcium 40 MG TABLET PO (09:31)
[2024-08-18] MEDS: Sertraline HCL 50 MG TABLET PO (09:31)
[2024-08-18] MEDS: 0.9 % Sodium Chloride Flush 3 ML SYRINGE IVFLUSH ×2 (09:31→18:22)
[2024-08-18] MEDS: Enoxaparin Sodium 40 MG/0.4 ML SYRINGE SUBCUT (09:31)
[2024-08-18] MEDS: Clopidogrel Bisulfate 75 MG TABLET PO (09:31)
[2024-08-18] MEDS: polyethylene glycoL 3350 17 GM POWD.PACK PO (09:32)
--- NOTE | 2024-08-18 11:32 | P.CDIM_ITS ---
PROVIDER RESPONSE TEXT: To clarify, the appropriate diagnosis supported by the clinical indicators: Pressure Injury coccyx Stage 2: suspected QUERY TEXT: PHYSICIAN'S DOCUMENTATION REQUEST Date of Query: 08/18/2024 11:25 AM EDT Patient Name: Alfonso Michele Admit Date: 08/17/2024 Dear Sarabjit Rooney MD, A review of the medical record indicates additional documentation may be needed. Please review below and update the documentation accordingly. Clinical Indicators: Wound care nursing assessment notes 08/17/24 - Pressure injury coccyx Stage 2 Foam dressing applied in Ed. Air loss bed. q2hr position change. Based on the above, could you please provide further information regarding the ulcer/wound/injury, if agree: Pressure Injury coccyx Stage 2 possible, probable, suspected, cannot rule out etc. Other specified Other (explain) Clinically unable to determine (explain) Thank you, Catia Rai, CCS, CDIS Use of terms such as suspected, likely, concern for, or probable (associated with a specific diagnosi s that is being evaluated, monitored, or treated as if it exists) are acceptable and can be coded in the inpatient se tting, when documented at the time of discharge. Please use your independent medical judgment in providing your response. THIS QUERY IS PART OF THE PERMANENT MEDICAL RECORD
--- NOTE | 2024-08-18 13:06 | MHC.CLN ---
CONSULT DIET=REGULAR. SKIN WITH STAGE II PRESSURE INJURY TO COCCYX. POOR PO INTAKE PRIOR TO ADMISSION. ADDING ENSURE TID (1050 KCALS, 60 G PROTEIN) TO PROMOTE NUTRITIONAL INTAKE AND SKIN INTEGRITY. CONCERN FOR LIKELY RENAL CELL CANCER WITH METS. FOLLOW FOR PO INTAKE AND WOUND HEALING. SEE CLINICAL NUTRITION ASSESSMENT 08/18/24.
[2024-08-18] MEDS: cefTRIAXone sodium 1 GM VIAL IVPUSH (18:22)
[2024-08-19 03:29] VITALS: BP 99/58; PULSE 74; RESP 17; TEMP 36.6; O2SAT 95
[2024-08-19 06:38] LABS: Anion Gap 12 (12-20); Blood Urea Nitrogen 31 mg/dL (9-16); Calcium 7.9 mg/dL (8.4-10.2); Carbon Dioxide 20 mmol/L (22-29); Chloride 115 mmol/L (96-108); Creatinine Clr Calc Pharmacy 53.7; Estimated Glomerular Filt Rate > 60; Glucose Random 98 mg/dL (60-115); Potassium 3.8 mmol/L (3.3-5.1); Sodium 143 mmol/L (135-145)
[2024-08-19 06:58] VITALS: BP 101/57; PULSE 70; RESP 12; TEMP 36.8; O2SAT 97
[2024-08-19 07:12] LABS: Hematocrit 26.8 % (42.0-52.0); Hemoglobin 8.1 g/dl (14.0-18.0); Mean Corpuscular HGB Conc 30.2 g/dl (31.0-36.0); Mean Corpuscular Hemoglobin 26.6 pg (27.0-33.0); Mean Corpuscular Volume 87.9 fL (80.0-98.0); Mean Platelet Volume 11.2 fL (9.4-12.4); Platelet Count 322 X10*3/uL (160-400); Red Blood Count 3.05 X10*6/uL (4.60-5.80); Red Cell Distribution Width 16.3 % (11.0-16.0); White Blood Count 7.2 X10*3/uL (4.8-10.8)
[2024-08-19] MEDS: Atorvastatin Calcium 40 MG TABLET PO (08:16)
[2024-08-19] MEDS: Clopidogrel Bisulfate 75 MG TABLET PO (08:16)
[2024-08-19] MEDS: Sertraline HCL 50 MG TABLET PO (08:17)
[2024-08-19] MEDS: Aspirin 81 MG TAB.CHEW PO (08:17)
[2024-08-19] MEDS: polyethylene glycoL 3350 17 GM POWD.PACK PO (08:19)
--- NOTE | 2024-08-19 08:44 | HO.PM.IMPN ---
Subjective Subjective Date of Service: 08/19/24 Interval History: no complaints Physical Exam Vital Signs: Vital Signs: Last Vital Signs Temp 98.3 F 08/19/24 06:58 Pulse 70 08/19/24 06:58 Resp 12 08/19/24 06:58 BP 101/57 L 08/19/24 06:58 Pulse Ox 97 08/19/24 06:58 O2 Del Method Room Air 08/19/24 06:58 BMI result Body Mass Index 22.0 alert, now conversing, following directions, oriented to self and place, poor insight palpable mass LUQ Objective Data Active Medications Acetaminophen (Acetaminophen 325 Mg Tablet) 650 mg PO Q6H PRN PRN Reason: Pain, Mild 1-3,fever,headache Last Admin: 08/18/24 03:32 Dose: 650 mg Documented By: CALI Aspirin (Aspirin 81 Mg Tab.Chew) 81 mg PO DAILY [facility] Last Admin: 08/19/24 08:17 Dose: 81 mg Documented By: PRINCE Atorvastatin Calcium (Atorvastatin Calcium 40 Mg Tablet) 40 mg PO DAILY [facility] Last Admin: 08/19/24 08:16 Dose: 40 mg Documented By: PRINCE Calcium Carbonate (Calcium Carbonate 750 Mg Tab.Chew) 750 mg PO Q4H PRN PRN Reason: Heartburn Ceftriaxone Sodium (Ceftriaxone Sodium 1 Gm Vial) 1 gm IVPUSH Q24H [facility] Last Admin: 08/18/24 18:22 Dose: 1 gm Documented By: INES Clopidogrel Bisulfate (Clopidogrel Bisulfate 75 Mg Tablet) 75 mg PO DAILY [facility] Last Admin: 08/19/24 08:16 Dose: 75 mg Documented By: PRINCE Enoxaparin Sodium (Enoxaparin Sodium 40 Mg/0.4 Ml Syringe) 40 mg SUBCUT Q24H [facility] Last Admin: 08/18/24 09:31 Dose: 40 mg Documented By: INES Dextrose/Sodium Chloride (D51/2ns) 1,000 mls @ 100 mls/hr IVCONT .Q10H [facility] Last Admin: 08/18/24 22:37 Dose: 100 mls/hr Documented By: DEANDRE Magnesium Hydroxide (Milk Of Magnesia 30 Ml Oral.Susp) 30 ml PO DAILY PRN PRN Reason: Constipation Melatonin (Melatonin 3 Mg Tablet) 6 mg PO BEDTIME PRN PRN Reason: Insomnia Polyethylene Glycol (Polyethylene Glycol 3350 17 Gm Powd.Pack) 17 gm PO DAILY [facility] Last Admin: 08/19/24 08:19 Dose: 17 gm Documented By: PRINCE Sertraline HCl (Sertraline Hcl 50 Mg Tablet) 50 mg PO DAILY [facility] Last Admin: 08/19/24 08:17 Dose: 50 mg Documented By: PRINCE Sodium Chloride (0.9 % Sodium Chloride Flush 3 Ml Syringe) 3 ml IVFLUSH QSHIFT [facility] Last Admin: 08/19/24 08:22 Dose: Not Given Documented By: PRINCE Non-Admin Reason: IV Running Labs 08/19/24 06:12 08/19/24 06:12 Labs: Laboratory Results - last 24 hr 08/19/24 06:12 MCV 87.9 MCH 26.6 L MCHC 30.2 L RDW 16.3 H Plt Count 322 MPV 11.2 Absolute Nucleated RBC 0.000 Nucleated RBC % (auto) 0.0 Anion Gap 12 Estim Creat Clear Calc 53.7 Estimated GFR > 60 Random Glucose 98 Calcium 7.9 L Microbiology Microbiology Results: Microbiology 08/17/24 19:06 Urine Culture - Final Urine Catheterized - Mercedes Catheter Escherichia coli 08/17/24 19:04 Blood Culture - Preliminary Blood - Venous No growth after 24 hours. 08/17/24 19:04 Blood Culture - Preliminary Blood - Venous Prelim: GNR Gram Stain only Assessment and Plan (1) Renal malignant neoplasm: Status: Acute (2) Hypernatremia: Status: Acute Plan 73M PMH htn, cva with vascular dementia form terminal worker facility, non ambulatory but feeds self, conversive and recognizes people at baseline. Presented with hypernatremia Acute metabolic encephalopathy due to sepsis from acute pyelonephritis complicated by acute hypernatremia given fluid bolus in ED, now on hypotonic fluids, monitor cultures gowing ecoli, gnr in blood likely same continue rocephin mental status much improved, now verbal suspected metastatic left renal cell cancer d/w hcp, see ACP note likely no further work up Hypertension Low normal blood pressures, will hold for now Vascular dementia Continue statin and antiplatelet DVT prophylaxis with Lovenox DNR/DNI reason for continued hospitalization:dispo planning Quality Stroke Does the patient have a stroke diagnosis?: No VTE Prior VTE?: No VTE Risk Level:: Medical - moderate - high VTE Device Contraindication: Treatment Not Indicated VTE Drug Contraindication: N/A - Med Ordered
[2024-08-19] MEDS: Dextrose 5 % and 0.45 % NaCl 1,000 ML 100 ML IVCONT (08:52)
[2024-08-19] MEDS: Enoxaparin Sodium 40 MG/0.4 ML SYRINGE SUBCUT (10:02)
[2024-08-19 13:31] VITALS: BP 133/63; PULSE 82; RESP 16; TEMP 37; O2SAT 97
[2024-08-19 15:43] VITALS: BP 120/71; PULSE 97; RESP 16; TEMP 36.8; O2SAT 97
[2024-08-19] MEDS: cefTRIAXone sodium 1 GM VIAL IVPUSH (18:36)
[2024-08-19 20:00] VITALS: BP 113/57; PULSE 84; RESP 16; TEMP 36.7; O2SAT 95
[2024-08-20] MEDS: 0.9 % Sodium Chloride Flush 3 ML SYRINGE IVFLUSH (00:40)
[2024-08-20] MEDS: Dextrose 5 % and 0.45 % NaCl 1,000 ML 100 ML IVCONT (01:38)
[2024-08-20 04:00] VITALS: BP 128/71; PULSE 79; RESP 17; TEMP 37.2; O2SAT 98
[2024-08-20 07:47] VITALS: BP 141/59; PULSE 77; RESP 18; TEMP 36.9; O2SAT 93
--- NOTE | 2024-08-20 08:17 | PM.DS ---
DS: Providers Provider Date of Service: 08/20/24 Date of admission: 08/17/24 17:11 Date of discharge: 08/20/24 Primary care physician: Unknown Physician Consults: 08/17/24 21:49 Consult to Wound Care Routine Reason for consultation: stage 2 coccyx DS: Diagnosis Discharge Diagnosis (1) Renal malignant neoplasm: Status: Acute (2) Hypernatremia: Status: Acute DS: Summary Hospital Course Hospital Course: from initial hpi: 73M PMH htn, cva with vascular dementia form skilled nursing facility, non ambulatory but feeds self, conversive and recognizes people at baseline. Patient was noted to be at his baseline about a week prior to presentation. Over the past week patient has been less conversive, not feeding himself, eating and drinking less. Did not note any fevers or chills. Patient is unable to provide history himself. Currently nonverbal. Labs in long-term facility showed signs of dehydration with hypernatremia so he was sent to the ED. In ED sodium is 154, CRP 18.61. No obvious signs of sepsis, chest x-ray unremarkable. No urine to send for UA. hospital course: Patient was admitted for acute metabolic encephalopathy due to sepsis from acute pyelonephritis complicated by acute hypernatremia. Was given ceftriaxone, cultures grew E coli. Was given hypotonic fluids. Mental status returned to baseline sepsis resolved and will be discharged on 5 more days of Ceftin. Patient had CT abdomen which showed suspected metastatic left renal cell cancer. This was discussed with healthcare proxy and decision was made for no further workup after treatment of UTI will likely transition to hospice care at [facility]. For hypertension initially blood pressure meds were held but now hypotension resolved and will continue on amlodipine. For vascular dementia was continued on statin and antiplatelet. Time Attestation Discharge Coordination Time (in mins): 34 Quality: Safe Use of Opioids Does Pt have an Active Cancer Diagnosis on the Problem List?: Yes Opioid Measure Date for [facility] Report: 07/21/24 Opioid Measure Time for [facility] Report: 08:18 Quality: Stroke Does the patient have a stroke diagnosis?: No Physical Exam Vital Signs: Vital Signs: Last Vital Signs Temp 98.5 F 08/20/24 07:47 Pulse 77 08/20/24 07:47 Resp 18 08/20/24 07:47 BP 141/59 H 08/20/24 07:47 Pulse Ox 93 08/20/24 07:47 O2 Del Method Room Air 08/20/24 07:47 BMI result Body Mass Index 22.0 alert, now conversing, following directions, oriented to self and place, poor insight palpable mass LUQ DS: Data Data Completed and Pending Labs on day of discharge: Preliminary micro results at discharge 08/17/24 19:04 Blood Culture - Preliminary Blood - Venous No growth after 48 hours. 08/17/24 19:04 Blood Culture - Preliminary Blood - Venous Gram negative eb Discharge Plan Discharge Anticipated Discharge Date/Time: 08/20/24 08:14 Patient Disposition: Xfer LTC Discharge Diagnosis: renal cancer, uti, hypernatremia Referrals: Physician,Unknown J [Primary Care Provider] - 1 Week Discharge Medications: New cefuroxime axetil 500 mg tablet 500 mg PO BID Qty: 10 0RF Continued sennosides [senna] 8.6 mg Tablet 17.2 mg PO DAILY polyethylene glycol 3350 [Miralax] 17 gram Powder In Packet 17 g PO DAILY melatonin 3 mg Tablet 3 mg PO BEDTIME clopidogrel 75 mg tablet 1 tab PO DAILY gabapentin 300 mg Capsule 300 mg PO DAILY aspirin 81 mg Tablet,Chewable 81 mg PO DAILY albuterol sulfate 90 mcg/actuation Hfa Aerosol Inhaler 2 puff INHALATION Q4H PRN (Reason: Wheezing) sertraline 50 mg tablet 1 tab PO DAILY cholecalciferol (vitamin D3) 1,250 mcg (50,000 unit) Tablet 1,250 mcg PO QMONTH atorvastatin 40 mg tablet 40 mg PO DAILY acetaminophen 325 mg Tablet 650 mg PO Q6H PRN (Reason: Pain) amlodipine 5 mg tablet 5 mg PO DAILY Discharge Orders: Discharge Order (Routine); Ordered 08/20/24 Ordered By: Sarabjit Rooney Diet: Advance to usual diet Activity on Discharge: As tolerated Stand Alone Forms: Patient Portal Discharge page Print Language: Bhutanese Care Plan Goals: end of life care Health Concerns: uti, hypernatremia, renal cancer Plan of Treatment: finish uti treatment, encourage po intake, plan for transition to hospice Assessment: see above
[2024-08-20] MEDS: Atorvastatin Calcium 40 MG TABLET PO (08:29)
[2024-08-20] MEDS: Clopidogrel Bisulfate 75 MG TABLET PO (08:29)
[2024-08-20] MEDS: Sertraline HCL 50 MG TABLET PO (08:29)
[2024-08-20] MEDS: Aspirin 81 MG TAB.CHEW PO (08:29)
[2024-08-20] MEDS: polyethylene glycoL 3350 17 GM POWD.PACK PO (08:29)
--- NOTE | 2024-08-20 08:48 | PC.NURSE ---
Pt had a large meatball and ate half of it and drank an entire chocolate ensure. He mentioned that he enjoyed the ensure and would like to have them for meals.
--- NOTE | 2024-08-20 12:11 | MHC.CM.PN ---
Addendum entered by Debbie Henderson 08/20/24 12:34: CM CALLED [facility] AND SPOKE TO 2 WEST RN, MARIUSZ, WHO IS AWARE PT WILL RETURN THIS AFTERNOON. SHE REQUESTS DCS BE SENT WITH PT AND DECLINES CM OFFER TO FAX IT AHEAD Original Note: PT CLEARED TO RETURN TO LTC AT [facility] TODAY SEVERAL MESSAGES LEFT FOR SNF LIAISON, STILL AWAITING RESPONSE BLS TRANSPORT BOOKED FOR 1400 WITH HIMANSHU DENG VM LEFT FOR DAUGHTER, SALVADOR [phone] INFORMING HER OF DC
--- NOTE | 2024-08-20 13:52 | PC.NURSE ---
Discharge from Ricardo Monge RN, IV Removed by primary RN.
[2024-08-20 13:58] VITALS: BP 120/56; PULSE 94; RESP 16; TEMP 36.9; O2SAT 96
== END 2024-08-20 14:01 | disposition home or self-care (01) | DRG 871 ==
LOC: HO.ED 18:26 → HO.EDOVER 18:41 → HO.S3 19:21
PROVIDERS: Admitting Provider Internal Medicine; Emergency Provider Emergency Medicine; PCP Internal Medicine; Visit Provider Internal Medicine
DX: A41.9 Sepsis, unspecified organism (principal); G93.41 Metabolic encephalopathy; E87.0 Hyperosmolality and hypernatremia; C64.2 Malignant neoplasm of left kidney, except renal pelvis; N10 Acute pyelonephritis; Z66 Do not resuscitate; I69.319 Unspecified symptoms and signs involving cognitive functions following cerebral infarction; I10 Essential (primary) hypertension; B96.20 Unspecified Escherichia coli [E. coli] as the cause of diseases classified elsewhere; L89.152 Pressure ulcer of sacral region, stage 2; E86.0 Dehydration; F01.50 Vascular dementia, unspecified severity, without behavioral disturbance, psychotic disturbance, mood disturbance, and anxiety; Z79.82 Long term (current) use of aspirin; Z79.02 Long term (current) use of antithrombotics/antiplatelets; Z79.899 Other long term (current) drug therapy
CPT/HCPCS: 36415; 70450; 71045; 74176; 80048; 80076; 81001; 82272; 82803; 83605; 83735; 83880; 84443; 85025; 85027; 86140; 87040; 87077; 87086; 87088; 87186; 87205; 93005; 99285; J0131; J0696; J1650; J7120

== ENCOUNTER → 2024-08-17 14:34 | Outpatient (BNV) | payer MEDICARE, MEDICAID, SELFPAY | PROVIDERS: Emergency Provider Emergency Medicine; Visit Provider Radiology Diagnostic Radiology | DX: D30.00 Benign neoplasm of unspecified kidney (principal); R41.82 Altered mental status, unspecified; R53.1 Weakness | CPT/HCPCS: 71045 ==

== ENCOUNTER → 2024-08-17 14:34 | Outpatient (BNV) | payer MEDICARE, MEDICAID, SELFPAY | PROVIDERS: Admitting Provider Internal Medicine; Emergency Provider Emergency Medicine; Visit Provider Internal Medicine Cardiovascular Disease | DX: R53.1 Weakness (principal) | CPT/HCPCS: 93010 ==

== ENCOUNTER → 2024-08-17 15:57 | Outpatient (BNV) | payer MEDICARE, MEDICAID, SELFPAY | PROVIDERS: Emergency Provider Emergency Medicine; Visit Provider Internal Medicine | DX: C64.9 Malignant neoplasm of unspecified kidney, except renal pelvis (principal); E87.0 Hyperosmolality and hypernatremia | CPT/HCPCS: 99223; 99232; 99233; 99239; 99497 ==